=== PATIENT | female | born 1985 | race Two or more races ===

== ENCOUNTER → 2019-04-04 16:30 | Outpatient (BNVA) | payer MEDICAID, SELFPAY | PROVIDERS: Visit Provider Emergency Medicine | DX: J06.9 Acute upper respiratory infection, unspecified (principal); J02.9 Acute pharyngitis, unspecified; J98.8 Other specified respiratory disorders; J45.901 Unspecified asthma with (acute) exacerbation | CPT/HCPCS: 87081; 87880 ==

== ENCOUNTER 2023-10-17 09:55 | Observation (INO) | payer OTHER, MEDICAID, SELFPAY ==
[2023-10-17] VITALS (10 sets, daily range): BP systolic 112–143; BP diastolic 60–98; PULSE 66–87; RESP 10–21; TEMP 36.6–36.9; O2SAT 95–100; BMI 35.9; BMI 36.1
--- NOTE | 2023-10-17 10:03 | ECG_ITS ---
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 Measurements Intervals [place] Rate: 71 P: 40 SC: 154 QRS: 5 QRSD: 99 T: 15 QT: 382 QTc: 417 Interpretive Statements SINUS RHYTHM POSSIBLE ANTERIOR MYOCARDIAL INFARCTION , PROBABLY OLD [30 ms Q WAVE IN V3/V4, OR R < 0.2 mV IN V4] No previous ECG available for comparison Electronically Signed On 10-17-2023 14:57:25 CDT by Jl Henderson M.D. [id number] f
--- NOTE | 2023-10-17 10:32 | ED_ITS ---
HPI - Chest Pain 2 General: Chief Complaint: Chest Pain Stated Complaint: Chest Pain Time Seen by Provider: 10/17/23 09:55 History of Present Illness: 38-year-old female presents to the [place] ency room with complaint of chest discomfort began suddenly. She has a history of gastric sleeve and a previous cholecystectomy. She had brought her daughter away and otherwise been feeling fine and suddenly had sharp chest pain that radiated to her left arm it is resolved now. She has no known history of coronary disease or arrhythmias. No history of DVT or PE. She can reproduce the pain with deep inspiration and with palpation on the anterior chest wall. Denies any abdominal pain. Associated symptoms: Deny abdominal pain, dyspnea or fever(s) Review of Systems 2 Const: Denies: fever(s) or chills Card: Denies: chest pain Resp: Denies: dyspnea GI: Denies: abdominal pain : Denies: dysuria, urinary frequency or urinary urgency Musc: Denies: neck pain or back pain Skin/Breast: Denies: rash PFSH ED 2 PFSH: Surgical History (Updated 10/17/23 @ 14:34 by Kellen Martin MD) History of cholecystectomy History of gastric restrictive surgery gastric sleeve Family History Denies family history of Diabetes Dementia Hypertension Social History Smoking and tobacco/nicotine status: never used tobacco/nicotine Alcohol intake: never Substance/Drug Use: never Physical Exam 2 Const: COMMON NORMALS: no acute distress GENERAL APPEARANCE: cooperative and comfortable ORIENTATION/CONSCIOUSNESS: Yes awake, Yes oriented to person, Yes oriented to place and Yes oriented to time HENMT: COMMON NORMALS: normocephalic, atraumatic and hearing grossly normal bilaterally HEAD & SCALP: normocephalic and atraumatic Resp: COMMON NORMALS: normal respiratory effort, No retractions, No use of accessory muscles and clear to auscultation bilaterally AUSCULTATION: clear to auscultation bilaterally Cardio: COMMON NORMALS: regular rate, regular rhythm and No murmurs present (Cardio) RATE: regular rate RHYTHM: regular rhythm GI: COMMON NORMALS: Soft to palpation and No hepatosplenomegaly present A USCULTATION: Yes normoactive bowel sounds PALPATION: Yes Soft to palpation, No Tenderness to palpation present (GI), No Guarding due to palpation present (GI) and Yes No hepatosplenomegaly present Extremity: COMMON NORMALS: normal to inspection, capillary refill normal, no clubbing, cyanosis or edema, no calf tenderness and no pedal edema Neuro: SENSORIUM/ORIENTATION: Yes oriented to person, Yes oriented to place and Yes oriented to time Skin: COMMON NORMALS: no rashes or lesions noted GENERAL SKIN EXAM: no rashes or lesions noted Course 2 Vital Signs: Vital signs: Vital Signs Temperature 97.9 F 10/17/23 10:11 Pulse Rate 78 10/17/23 14:18 Respiratory Rate 16 10/17/23 14:18 Blood Pressure 143/98 10/17/23 13:04 Pulse Oximetry 100 10/17/23 14:18 Oxygen Delivery Me thod Room Air 10/17/23 14:18 MDM - Chest Pain Medical Decision Making Patient presents with sudden onset of chest comfort radiating to her left shoulder neck and arm. Mostly resolved by the time she got here and is reproducible with palpation of the chest and deep inspiration EKG did not show any acute changes or her delta troponin is positive. Discussed with Dr. Henderson on-call he recommends Lovenox. Patient was also given aspirin. Will admit to the hospitalist. Lab Data 10/17/23 10:50 10/17/23 10:50 Radiology Impressions Chest X-Ray 10/17/23 11:33 IMPRESSION: Unremarkable portable chest. Laboratory Results WBC 9.87 10^3/uL (3.29-11.43) 10/17/23 10:50 RBC 4.47 10^6/uL (3.85-5.65) 10/17/23 10:50 Hgb 13.80 g/dL (11.27-16.99) 10/17/23 10:50 Hct 42.6 % (36-47) 10/17/23 10:50 MCV 95.3 fl (85-98) 10/17/23 10:50 MCH 30.9 pg (27-33) 10/17/23 10:50 MCHC 32.4 g/dL (30-55) 10/17/23 10:50 RDW 13.1 % (12.1-15.1) 10/17/23 10:50 Plt Count 304 10^3/cmm (157-399) 10/17/23 10:50 MPV 10.2 fL (7.4-10.4) 10/17/23 10:50 Neut % (Auto) 77.4 % 10/17/23 10:50 Lymph % (Auto) 14.1 % 10/17/23 10:50 Russell % (Auto) 6.5 % 10/17/23 10:50 Eos % (Auto) 1.4 % 10/17/23 10:50 Baso % (Auto) 0.4 % 10/17/23 10:50 Neut # (Auto) 7.64 10^3/uL (1.8-7.7) 10/17/23 10:50 Lymph # (Auto) 1.4 10^3/uL (0.8-4.8) 10/17/23 10:50 Russell # (Auto) 0.6 10^3/uL (0.2-0.9) 10/17/23 10:50 Eos # (Auto) 0.1 10^3/uL (0.0-0.8) 10/17/23 10:50 Baso # (Auto) 0.0 10^3/uL (0.0-0.1) 10/17/23 10:50 Nucleated RBC % (auto) 0 % 10/17/23 10:50 Nucleated RBCs # 0.0 /100WBC 10/17/23 10:50 D-Dimer <= 0.27 ug/mLFEU (0-0.59) 10/17/23 10:50 Sodium 138 mmol/L (136-145) 10/17/23 10:50 Potassium 3.8 mmol/L (3.5-5.1) 10/17/23 10:50 Chloride 103 mmol/L (98-107) 10/17/23 10:50 Carbon Dioxide 21 mmol/L (22-29) L 10/17/23 10:50 Anion Gap 17.8 (5-19) 10/17/23 10:50 BUN 11 mg/dL (6-20) 10/17/23 10:50 Creatinine 0.4 mg/dL (0.5-0.9) L 10/17/23 10:50 GFR Calculation 179.6 mL/min (90-130) H 10/17/23 10:50 Glucose 95 mg/dL (65-115) 10/17/23 10:50 Calculated Osmolality 285 mOsm/kg (285-295) 10/17/23 10:50 Calcium 9.2 mg/dL (8.5-10.5) 10/17/23 10:50 Total Bilirubin 0.4 mg/dL (0.15-1.2) 10/17/23 10:50 AST 11 U/L (0-32) 10/17/23 10:50 ALT 11 U/L (0-33) 10/17/23 10:50 Alkaline Phosphatase 69 U/L (35-105) 10/17/23 10:50 Troponin T Baseline 16 ng/L (0-10) H 10/17/23 10:50 Troponin T 120 Minute 46.78 ng/L (0-10) H 10/17/23 13:02 Delta Troponin T 30.78 ABS# (0-10) H* 10/17/23 13:02 Total Protein 7.4 g/dL (6.6-8.7) 10/17/23 10:50 Albumin 4.4 g/dL (3.5-5.2) 10/17/23 10:50 Globulin 3.0 g/dL (1.3-4.6) 10/17/23 10:50 Amorphous Sediment Not Reportable 10/17/23 14:10 All radiology interpretation(s) finalized by discharge EKG Data EKG 1: Interpretation: Normal sinus rhythm with a heart rate of 71. No acute ST changes ID interval 154 QT 382 EKG 2: Interpretation: Sinus bradycardia rate of 59 ID interval [address] QTc [address] No acute ST elevation noted. Discharge Plan Discharge Patient Disposition: Admitted As Inpatient Clinical Impression: Non-ST elevation [place] (NSTEMI) Condition: Stable Prescriptions: No Action No Known Home Medications Coding Level of Care Code ED Electrical Drafter for Amaod Pierson
--- NOTE | 2023-10-17 10:49 | PC.PHAR ---
NO CURRENT HOME MEDS LAST RX WAS MACROBID 100MG TWICE DAILY FOR 7 DAYS 07/04/23-FINISHED THERAPY.
[2023-10-17 11:12] LABS: Basophils % 0.4 %; Eosinophils # 0.1 10^3/uL (0.0-0.8); Eosinophils % 1.4 %; Hematocrit 42.6 % (36-47); Lymphocytes # 1.4 10^3/uL (0.8-4.8); Lymphocytes % 14.1 %; Mean Corpuscular HGB Conc 32.4 g/dL (30-55); Mean Corpuscular Hemoglobin 30.9 pg (27-33); Mean Corpuscular Volume 95.3 fl (85-98); Mean Platelet Volume 10.2 fL (7.4-10.4); Monocytes # 0.6 10^3/uL (0.2-0.9); Monocytes % 6.5 %; Neutrophils # 7.64 10^3/uL (1.8-7.7); Neutrophils % 77.4 %; Nucleated Red Blood Cells % 0 %; Platelet Count 304 10^3/cmm (157-399); Red Blood Count 4.47 10^6/uL (3.85-5.65); Red Cell Distribution Width 13.1 % (12.1-15.1); White Blood Count 9.87 10^3/uL (3.29-11.43)
[2023-10-17 11:30] LABS: D Dimer <= 0.27 ug/mLFEU (0-0.59)
[2023-10-17 11:31] LABS: Alanine Aminotransferase 11 U/L (0-33); Albumin Level 4.4 g/dL (3.5-5.2); Alkaline Phosphatase 69 U/L (35-105); Anion Gap 17.8 (5-19); Aspartate Amino Transferase 11 U/L (0-32); Blood Urea Nitrogen 11 mg/dL (6-20); Calcium 9.2 mg/dL (8.5-10.5); Carbon Dioxide 21 mmol/L (22-29); Chloride 103 mmol/L (98-107); Glomerular Filtration Rate 179.6 mL/min (90-130); Glucose 95 mg/dL (65-115); Osmolality Calculated 285 mOsm/kg (285-295); Potassium 3.8 mmol/L (3.5-5.1); Sodium 138 mmol/L (136-145); Total Bilirubin 0.4 mg/dL (0.15-1.2); Total Protein 7.4 g/dL (6.6-8.7); Troponin(5th) Baseline 16 ng/L (0-10)
[2023-10-17 11:32] LABS: Creatinine Clr Calc Pharmacy 191.9813
--- NOTE | 2023-10-17 11:33 | XR_ITS ---
WS: [id number] PORTABLE CHEST HISTORY: chest pain COMPARISON: None available. Lungs are clear and well expanded. No pleural effusion or pneumothorax. Cardiac size: Normal. Mediastinum/Aorta: Normal mediastinum. No osseous abnormality seen. XR/XR chest 1V portable [id number] IMPRESSION: Unremarkable portable chest.
--- NOTE | 2023-10-17 11:57 | ECG_ITS ---
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 Measurements Intervals [place] Rate: 59 P: 50 [place]: 158 QRS: 31 QRSD: 94 T: 34 QT: 411 QTc: 410 Interpretive Statements SINUS BRADYCARDIA Compared to ECG 10/17/2023 10:03:20 Sinus rhythm no longer present Myocardial infarct finding no longer present Electronically Signed On 10-17-2023 14:58:48 CDT by Jl Henderson M.D. [email or web address]/[id number]
[2023-10-17 13:32] LABS: Troponin 5 2HR 46.78 ng/L (0-10)
[2023-10-17 13:36] LABS: Troponin 5 2HR Delta 30.78 ABS# (0-10)
--- NOTE | 2023-10-17 13:58 | PM.HP ---
Providers/Chief Complaint Admitting Physician: Kellen Martin MD Primary Care Provider: Previously saw Dr. Roman at [facility]. Now sees whomever is at the [facility]. Chief Complaint: Chest Pain History of Present Illness Padmaja Haywood is a 38 year old female who presented to the emergency room with chief complaint of chest pain. She had taken her daughter to practice and return home. She was sitting down when she had sudden onset of substernal chest pain that was sharp in nature going through to her back. It also went up into her left shoulder and down the arm. It was severe in nature. She had associated nausea and shortness of breath. She called EMS. In route they administered aspirin and nitroglycerin and by the time she arrived here her chest pain had resolved. Twelve-lead EKG did not show any acute ST segment changes. Initial troponin was 16. Chest pain was noted to be reproducible with palpation of her chest wall. Serial cardiac enzymes continued and 2-hour troponin delta was found to be elevated at 30.78. No personal or family history of heart or related medical problems. She does not smoke, use drugs and rarely has any alcohol. Chest pain recurred while she was in the emergency room this time originating in the left chest rather than under the sternum but again radiated to the left arm and through her back. Second episode of severe chest pain up to 10 out of 10 occurred after echocardiogram was initiated. Patient received some nitroglycerin and echocardiogram was completed. She feels like the combination of medicine and the pressure on her chest being removed led to the improvement. She currently rates her pain at a 5 out of 10. Blood pressure after first nitroglycerin 107 systolic. Heart rate in the low 70s. Oxygen saturations are normal on room air. In talking with Mrs. Haywood she has been using more Tums for the last few months for reflux symptoms that began to be an issue in May of this year. She has a history of asthma onset in childhood but has not utilized her rescue inhaler for several years now. No similar previous symptoms. No history of exertional dyspnea, lower extremity edema, orthopnea or PND. She does have problems with back pain that was waking her up at night but this is managed with Tylenol and better after a tiral with some therapy. She has a couple of migraines a month for which she takes ibuprofen. Last menstrual cycle was Carrol 28. Does not believe she has ever had lipid panel or A1c checked. She is being admitted to hospitalist for further evaluation and management. Review of Systems General: Reports: Other (ROS as per HPI or as otherwise noted here) Const: Denies: fever(s) or change in weight ENMT: Denies: nasal congestion Card: Reports: chest pain; Denies: palpitations, irregular heart rhythm, edema, swelling of feet/ankles, lightheadedness, syncope, dyspnea on exertion, orthopnea or leg pain with exertion Resp: Reports: dyspnea (with chest pain); Denies: productive cough, non-productive cough or wheezing GI: Reports: nausea (with chest pain), heartburn (frequent since ~05/2023, keeps tums with her) and diarrhea (stools looser than usual last 2 days, higher volume); Denies: abdominal pain, vomiting, constipation, belching, hematochezia or melena : Denies: difficulty voiding Musc: Reports: back pain (better with nighttime tylenol and back therapy exercise program); Denies: extremity pain or extremity swelling Skin/Breast: Denies: rash Neuro: Reports: headache(s) (couple migraines per month, managed with ibuprofen); Denies: dizziness Dawood/Lymph: Denies: easy bruising or easy bleeding Medications/Allergies Home Medications Medication Instructions Recorded Confirmed Last Taken Type acetaminophen 500 mg capsule 1,000 mg PO BEDTIME 10/17/23 10/17/23 10/16/23 History albuterol sulfate 90 mcg/actuation 1 inh inhalation QID PRN asthma 10/17/23 10/17/23 10/11/20 History aerosol inhaler calcium carbonate 1,000 mg PO BID PRN reflux 10/17/23 10/17/23 Unknown History ibuprofen 800 mg tablet 800 mg PO Q8H PRN Migraine Headache 10/17/23 10/17/23 Unknown History Allergies Allergy/AdvReac Type Severity Reaction Status Date / Time No Known Allergies Allergy Verified 04/04/19 16:27 PFSH Acute PFSH: Medical History (Updated 10/17/23 @ 15:35 by Kellen Martin MD) History of femur fracture left distal femur fracture, hairline in 2020, non-surgical management Migraine Asthma childhood asthma, still has prn albuterol but very rarely uses 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 Surgical History (Updated 10/17/23 @ 15:24 by Kellen Martin MD) History of tubal ligation (2022) History of cholecystectomy (2019) History of gastric restrictive surgery (2019) gastric sleeve Family History (Updated 10/17/23 @ 15:08 by Kellen Martin MD) Denies family history of Diabetes CAD (coronary artery disease) Clotting disorder Dementia Hyperlipidemia Chronic kidney disease (CKD) Hypertension Social History (Updated 10/17/23 @ 15:09 by Kellen Martin MD) Smoking and tobacco/nicotine status: never used tobacco/nicotine Alcohol intake: current Alcohol intake frequency: holidays/special occasions only Alcohol use comment: rare use Substance/Drug Use: never Female Reproductive History: Date of last menstrual period: 10/08/23 : 4 Para: 2 Spontaneous abortions: Yes (2) Vitals/I&O/Wt Last Vital Signs Temp 97.9 F 10/17/23 10:11 Pulse 73 10/17/23 13:04 Resp 18 10/17/23 13:04 BP 143/98 10/17/23 13:04 Pulse Ox 100 10/17/23 13:04 O2 Del Method Room Air 10/17/23 13:04 Weight last 48 hrs Weight 86.183 kg Physical Exam Narrative: Patient is awake and alert, able to provide history. Normocephalic. Extraocular movements are intact. Oropharynx with moist mucous membranes. Neck is supple. Lungs are clear to auscultation bilaterally. Cardiovascular exam reveals a regular rate and rhythm, no murmurs or rubs noted. Pendulous breasts noted. Chest wall is tender to palpation to left of the sternum with extension of pain into the left shoulder. ALso notable with deep inspiration with some splinting of left thorax noted. Abdomen is soft, nontender with positive bowel sounds. No pitting edema in the pretibial or ankle regions. 2+ pulses x 4. Speech is clear, face symmetric, moves all extremities. Data 10/17/23 10:50 10/17/23 10:50 Other Labs: Radiology Impressions Chest X-Ray 10/17/23 11:33 IMPRESSION: Unremarkable portable chest. Laboratory Results WBC 9.87 10^3/uL (3.29-11.43) 10/17/23 10:50 RBC 4.47 10^6/uL (3.85-5.65) 10/17/23 10:50 Hgb 13.80 g/dL (11.27-16.99) 10/17/23 10:50 Hct 42.6 % (36-47) 10/17/23 10:50 MCV 95.3 fl (85-98) 10/17/23 10:50 MCH 30.9 pg (27-33) 10/17/23 10:50 MCHC 32.4 g/dL (30-55) 10/17/23 10:50 RDW 13.1 % (12.1-15.1) 10/17/23 10:50 Plt Count 304 10^3/cmm (157-399) 10/17/23 10:50 MPV 10.2 fL (7.4-10.4) 10/17/23 10:50 Neut % (Auto) 77.4 % 10/17/23 10:50 Lymph % (Auto) 14.1 % 10/17/23 10:50 Jenkins % (Auto) 6.5 % 10/17/23 10:50 Eos % (Auto) 1.4 % 10/17/23 10:50 Baso % (Auto) 0.4 % 10/17/23 10:50 Neut # (Auto) 7.64 10^3/uL (1.8-7.7) 10/17/23 10:50 Lymph # (Auto) 1.4 10^3/uL (0.8-4.8) 10/17/23 10:50 Jenkins # (Auto) 0.6 10^3/uL (0.2-0.9) 10/17/23 10:50 Eos # (Auto) 0.1 10^3/uL (0.0-0.8) 10/17/23 10:50 Baso # (Auto) 0.0 10^3/uL (0.0-0.1) 10/17/23 10:50 Nucleated RBC % (auto) 0 % 10/17/23 10:50 Nucleated RBCs # 0.0 /100WBC 10/17/23 10:50 D-Dimer <= 0.27 ug/mLFEU (0-0.59) 10/17/23 10:50 Sodium 138 mmol/L (136-145) 10/17/23 10:50 Potassium 3.8 mmol/L (3.5-5.1) 10/17/23 10:50 Chloride 103 mmol/L (98-107) 10/17/23 10:50 Carbon Dioxide 21 mmol/L (22-29) L 10/17/23 10:50 Anion Gap 17.8 (5-19) 10/17/23 10:50 BUN 11 mg/dL (6-20) 10/17/23 10:50 Creatinine 0.4 mg/dL (0.5-0.9) L 10/17/23 10:50 GFR Calculation 179.6 mL/min (90-130) H 10/17/23 10:50 Glucose 95 mg/dL (65-115) 10/17/23 10:50 Calculated Osmolality 285 mOsm/kg (285-295) 10/17/23 10:50 Calcium 9.2 mg/dL (8.5-10.5) 10/17/23 10:50 Total Bilirubin 0.4 mg/dL (0.15-1.2) 10/17/23 10:50 AST 11 U/L (0-32) 10/17/23 10:50 ALT 11 U/L (0-33) 10/17/23 10:50 Alkaline Phosphatase 69 U/L (35-105) 10/17/23 10:50 Troponin T Baseline 16 ng/L (0-10) H 10/17/23 10:50 Troponin T 120 Minute 46.78 ng/L (0-10) H 10/17/23 13:02 Delta Troponin T 30.78 ABS# (0-10) H* 10/17/23 13:02 Total Protein 7.4 g/dL (6.6-8.7) 10/17/23 10:50 Albumin 4.4 g/dL (3.5-5.2) 10/17/23 10:50 Globulin 3.0 g/dL (1.3-4.6) 10/17/23 10:50 Other data: HEART Score 3 at presentation but 2 hr troponin delta positive at 31 A&P Assessment and plan (1) Non-ST elevation [place] (NSTEMI): As evidenced by +2-hour troponin delta at 30. 2nd EKG with sinus bradycardia at 59. No acute ST segment changes. Chest pain itself is reproducible on examination and was exacerbated during echocardiogram due to pressure from probe. Pain is occurring at rest. There are features which are concerning such as pain going through to the back up into the left shoulder and down the left arm and being associated with shortness of breath and nausea. No personal history of similar symptoms prior to today. No known history of CAD, hypertension, hyperlipidemia, diabetes or kidney disease. Has had several miscarriages last couple years. D-dimer is normal, sats normal on room air. Primary risk factor is obesity. No known family history though mother does not seek medical care. (2) Left-sided chest wall pain: Appears musculoskeletal with reproducibility on examination, but that would not explain cardiac enzymes elevation. Clinically she has costochondritis in addition to NSTEMI. (3) GERD (gastroesophageal reflux disease): Not know to have esophagitis, takes as needed tums, keeps with her, more noticeable issue since 05/2023 (4) History of back pain: Managed with acetaminophen at bedtime (5) Intermittent asthma: Mild intermittent without complication, chronic, not acute, last use of albuterol several years ago (6) History of migraine headaches: Couple per month, managed with with ibuprofen (7) Obesity (BMI 35.0-39.9 without comorbidity): Plan Observation admission Continue serial cardiac enzymes Cardiology consultation, will be seen by Dr. Henderson Echocardiogram has been performed, pending read Further determination of additional cardiac testing to be determined pending results of above Continue aspirin therapy Continue Lovenox for now Nitroglycerin if needed Holding on initiation of beta-blockade secondary to potential plan for stress testing and fact that patient had transient sinus bradycardia today Check hemoglobin A1c and lipid panel Initiate statin therapy Will give IV fluids Acetaminophen at bedtime for back pain scheduled and as needed for other pain, with max of 4 grams per day Holding ibuprofen currently due to acute issues and bleeding risk Monitor for migraines PPI plus as needed Tums Currently not ordering as needed albuterol as she has not needed in several years test ordered VTE prophylaxis: SCDs GI Prophylaxis: PPI Antibiotics: none Pending studies: lipid panel, A1c, repeat cardiac enzymes, echo interpretation Telemetry: ordered Lovelace: not currently indicated Line(s): peripheral IVs Disposition plan: Home with outpatient follow up to primary care at [facility], possibly with cardiology depending on clinical course Code Status: Full Code Supportive care otherwise Findings, concerns and plans were discussed with patient and she was given an opportunity to ask questions Attestations Medical Necessity Statement*: Anticipated stay less than 2 midnights currently in a patient presenting with chest pain that has both typical atypical features. She has positive 2-hour troponin delta and will require additional cardiac testing and risk factor evaluation/modification. Plans are as noted. Diagnoses Non-ST elevation WI (NSTEMI) I21.4 Left-sided chest wall pain R07.89 GERD (gastroesophageal reflux disease) K21.9 History of back pain Z87.39 Intermittent asthma J45.20 History of migraine headaches Z86.69 Obesity (BMI 35.0-39.9 without comorbidity) E66.9
--- NOTE | 2023-10-17 14:18 | USCV_ITS ---
Padmaja Haywood Age: 38 Gender: F : 1985 Exam Date: 10/17/2023 14:30 Ordering Phys: Kellen Martin MD Technologist: Exam Location: [facility] [place] Indication: abnormal triponine BP: 123 / 87 HR: 89 Rhythm: Sinus Technical Quality: Adequate MEASUREMENTS (Male / Female) Normal Values 2D ECHO LV Diastolic Diameter PLAX 3.7 cm 4.2 - 5.9 / 3.9 - 5.3 cm IVS Diastolic Thickness 1.1 cm 0.6 - 1.0 / 0.6 - 0.9 cm IVS Systolic Thickness 1.5 cm LVPW Diastolic Thickness 1.3 cm 0.6 - 1.0 / 0.6 - 0.9 cm LVPW Systolic Thickness 1.7 cm LVOT Diameter 2.0 cm LV Ejection Fraction 2D Teich 61.6 % LV Ejection Fraction MOD 4C 57.4 % LV Ejection Fraction MOD 2C 60.4 % LV Ejection Fraction 2C AL 60.5 % LA Diameter 2.9 cm Aorta at Sinotubular Diameter 2.6 cm IVC Diameter 2.1 cm DOPPLER AV Peak Velocity 72.0 cm/s LVOT Peak Velocity 73.0 cm/s AV Area Cont Eq vti 3.4 cm squared AV Area Cont Eq pk 3.2 cm squared MV Peak Velocity 69.0 cm/s MV Area PHT 4.2 cm squared Mitral E to A Ratio 1.2 TR Peak Velocity 117.0 cm/s TR Peak Gradient 5.5 mmHg TV Peak E Velocity 72.0 cm/s Right Atrial Pressure 3.0 mmHg Pulmonary Artery Systolic Pressu 8.5 mmHg PV Peak Velocity 98.0 cm/s FINDINGS Left Ventricle Left ventricle is normal in size. LV systolic function is normal with EF 55 to 60%. In some views, apical and anterolateral britton appear to have mild hypokinesis. Right Ventricle Normal in size and function Right Atrium Normal in size Left Atrium Normal in size Mitral Valve Structurally normal mitral valve. Mild mitral regurgitation Aortic Valve Structurally normal aortic valve. No significant stenosis or regurgitation. Tricuspid Valve Insufficient TR jet to evaluate RVSP. Pulmonic Valve Not well visualized Pericardium Normal Aorta Normal in size IVC Appears to be normal CONCLUSIONS LV systolic function is normal with EF 55 to 60%. In some views apical, anterior britton appeared to have mild hypokinesis. Mild mitral regurgitation. No comparison studies are available. Jl Henderson MD (Electronically Signed) Final Date: 17 October 2023 17:09 S
[2023-10-17] MEDS: aspirin 81 mg Chew Tablet 324 MG PO (14:21)
[2023-10-17] MEDS: enoxaparin 100 mg/mL Syringe 90 MG SUBCUT (14:22)
[2023-10-17 14:24] LABS: Charge for UA Resulting for Rev
[2023-10-17 14:31] LABS: Bilirubin Urine Negative (Negative); Blood Urine Negative (Negative); Glucose Urine UA Negative (Normal); Ketones Urine 1+ (Negative); Leukocyte Esterase Urine 3+ (Negative); Nitrate Urine Negative (Negative); Protein Urine Negative (Negative); Specific Gravity, Urine 1.009 (1.005-1.030); Urine Appearance Clear (CLEAR); Urine Color Yellow (Yellow); Urobilinogen Urine 0.2 mg/dL (Negative); pH Urine 5.5 (5-7)
[2023-10-17 14:34] LABS: HCG Qualitative Urine. Negative (Negative)
[2023-10-17 14:35] LABS: Bacteria Urine Trace /hpf; RBC Urine 0-2 /hpf (0-2); Squamous Epithelial Cell Urine 0-5 /hpf (0-5); WBC Urine 21-50 /hpf (0-5)
[2023-10-17 14:38] LABS: Add Urine Culture? Yes
[2023-10-17] MEDS: nitroglycerin 0.4 mg sublingual Tablet SUBLINGUAL ×2 (14:45→15:03)
[2023-10-17] MEDS: sodium chloride 0.9% 250 ML IV (15:03)
[2023-10-17 15:06] LABS: NT Pro B Type Natriuretic Pept < 36 pg/mL (0-125)
--- NOTE | 2023-10-17 15:57 | ECG_ITS ---
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 Measurements Intervals [place] Rate: 82 P: 49 [place]: 187 QRS: 16 QRSD: 105 T: 23 QT: 362 QTc: 425 Interpretive Statements SINUS RHYTHM Compared to ECG 10/17/2023 11:36:49 Sinus bradycardia no longer present Electronically Signed On 10-17-2023 14:57:27 CDT by Jl Henderson M.D. [email or web address] [email or web address] city [email or web address]/store/[id number]
--- NOTE | 2023-10-17 15:58 | PC.NURSE ---
received into room 104 from er at 1540.oriented to room environment.pt denies cp at present.vss.sr on monitor.instructed to notify staff for any chest pain,sob,dizziness,or for any concerns at all.pt verb understanding of instructions
--- NOTE | 2023-10-17 16:54 | P.CONIM_ITS ---
Providers/Reason For Consult 2 Consulting Physician/Specialty*: Jl Henderson MD/ Cardiology Reason for Consult*: NSTEMI Requesting Physician: Dr Fountain Attending Physician: Kellen Martin MD History of Present Illness History of Present Illness Padmaja Haywood is a 38 year old female with no significant prior cardiac history was presented to hospital with 15 minutes of severe substernal chest pain. It was going into the left arm. Again in the hospital had 1 episode of chest discomfort. Nitroglycerin improved the pain. Her initial troponin was 16 that went up to 46 at 2 hours. EKG not showing ischemic changes. She had an echocardiogram that is showing hypokinesis of anterolateral wall. Review of Systems 2 Const: Denies: fever(s) or chills Card: Reports: chest pain Resp: Denies: dyspnea GI: Denies: abdominal pain : Denies: dysuria, urinary frequency or urinary urgency Musc: Denies: neck pain or back pain Skin/Breast: Denies: rash Medications/Allergies Home Medications Medication Instructions Recorded Confirmed Last Taken Type acetaminophen 500 mg capsule 1,000 mg PO BEDTIME 10/17/23 10/17/23 10/16/23 History albuterol sulfate 90 mcg/actuation 1 inh inhalation QID PRN asthma 10/17/23 10/17/23 10/11/20 History aerosol inhaler calcium carbonate 1,000 mg PO BID PRN reflux 10/17/23 10/17/23 Unknown History ibuprofen 800 mg tablet 800 mg PO Q8H PRN Migraine Headache 10/17/23 10/17/23 Unknown History Allergies Allergy/AdvReac Type Severity Reaction Status Date / Time No Known Allergies Allergy Verified 04/04/19 16:27 Current Medications Generic Name Dose Route Start Last Admin Trade Name Freq PRN Reason Stop Dose Admin Nitroglycerin 0.4 mg 10/17/23 14:38 10/17/23 15:03 Nitroglycerin 0.4 Mg Sublingual Tablet SUBLINGUAL 0.4 mg Q5M PRN Administration CHEST PAIN PFSH Acute 2 PFSH: Medical History History of femur fracture left distal femur fracture, hairline in 2020, non-surgical management Migraine Asthma childhood asthma, still has prn albuterol but very rarely uses 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 Surgical History History of tubal ligation (2022) History of cholecystectomy (2019) History of gastric restrictive surgery (2019) gastric sleeve Family History Denies family history of Diabetes CAD (coronary artery disease) Clotting disorder Dementia Hyperlipidemia Chronic kidney disease (CKD) Hypertension Social History Smoking and tobacco/nicotine status: never used tobacco/nicotine Alcohol intake: current Alcohol intake frequency: holidays/special occasions only Alcohol use comment: rare use Substance/Drug Use: never Female Reproductive History: Date of last menstrual period: 10/08/23 G ravida: 4 Para: 2 Spontaneous abortions: Yes (2) Vitals/I&O/Wt Last Vital Signs Temp 97.9 F 10/17/23 10:11 Pulse 66 10/17/23 15:25 Resp 10 L 10/17/23 15:25 BP 127/94 10/17/23 15:25 Pulse Ox 96 10/17/23 15:25 O2 Del Method Room Air 10/17/23 15:03 Weight last 48 hrs Weight 190 lb Physical Exam 2 Narrative: GENERAL: Patient is alert, awake and oriented x3. [] NECK: No jugular vein distension. [] HEENT: No cyanosis. No icterus. No pallor. [] HEART: Regular S1 and S2. No murmur, rub or gallop. [] LUNGS: Clear to auscultate bilaterally. [] CENTRAL NERVOUS SYSTEM: Grossly nonfocal. [] EXTREMITIES: Lower extremities with no edema bilaterally. Data 10/18/23 04:02 10/18/23 04:02 A&P Assessment and plan (1) Non-ST elevation NE (NSTEMI): (2) GERD (gastroesophageal reflux disease): (3) History of back pain: Plan Patient has presented with typical symptoms of chest pain and troponin elevation. Echo is showing hypokinesis of anterolateral wall. We will proceed with coronary angiogram with possible PCI. Risks and benefits of the procedure have been discussed in detail. Patient understands that and wants to proceed. Continue aspirin and anticoagulation. Thank you for involving us with care of this patient. We will continue to follow. Please call with questions. Consult Attestations 2 Medical Necessity Statement: Care expected to cross 2 midnights. Coding Level of Care Code Acute Code for [facility] Fwd Diagnoses Non-ST elevation NE (NSTEMI) I21.4 GERD (gastroesophageal reflux disease) K21.9 History of back pain Z87.39
[2023-10-17 16:59] LABS: Troponin 5 6HR 41.46 ng/L (0-10)
[2023-10-17 17:11] LABS: Troponin 5 6HR Delta 25.46 ng/L (0-12)
[2023-10-17] MEDS: cefTRIAXone 1,000 mg SDV 1000 MG IVP (21:49)
[2023-10-17] MEDS: atorvastatin 40 mg Tablet PO (21:49)
[2023-10-17] MEDS: acetaminophen 325 mg Tablet 650 MG PO (23:54)
[2023-10-17] MEDS: D5-NS 0.45% + KCL 20 mEq 20 MEQ/1,000 ML BAG 75 MEQ IV (23:54)
[2023-10-18] VITALS (72 sets, daily range): BP systolic 94–138; BP diastolic 40–88; PULSE 63–101; RESP 10–29; TEMP 36.1–36.8; O2SAT 97–100
[2023-10-18] MEDS: enoxaparin 100 mg/mL Syringe 90 MG SUBCUT (02:29)
[2023-10-18 04:27] LABS: Basophils % 0.6 %; Eosinophils # 0.1 10^3/uL (0.0-0.8); Eosinophils % 1.8 %; Hematocrit 38.8 % (36-47); Lymphocytes # 2.1 10^3/uL (0.8-4.8); Lymphocytes % 28.9 %; Mean Corpuscular Hemoglobin 30.7 pg (27-33); Mean Platelet Volume 10.1 fL (7.4-10.4); Monocytes # 0.6 10^3/uL (0.2-0.9); Neutrophils # 4.22 10^3/uL (1.8-7.7); Neutrophils % 59.6 %; Nucleated Red Blood Cells % 0 %; Platelet Count 245 10^3/cmm (157-399); Red Blood Count 4.04 10^6/uL (3.85-5.65); Red Cell Distribution Width 12.9 % (12.1-15.1); White Blood Count 7.09 10^3/uL (3.29-11.43)
[2023-10-18 04:38] LABS: INR 1.02 (0.8-1.2)
[2023-10-18 04:39] LABS: Partial Thromboplastin Time 35.5 SECONDS (23.9-36.7)
[2023-10-18 04:43] LABS: Anion Gap 15.1 (5-19); Blood Urea Nitrogen 7 mg/dL (6-20); Calcium 8.5 mg/dL (8.5-10.5); Carbon Dioxide 24 mmol/L (22-29); Chloride 107 mmol/L (98-107); Creatinine Clr Calc Pharmacy 154.0257; Glomerular Filtration Rate 138.8 mL/min (90-130); Glucose 96 mg/dL (65-115); Magnesium 2.1 mg/dL (1.7-2.3); Osmolality Calculated 292 mOsm/kg (285-295); Phosphorus 3.2 mg/dL (2.5-4.5); Potassium 4.1 mmol/L (3.5-5.1); Sodium 142 mmol/L (136-145)
[2023-10-18 04:44] LABS: Estmated Average Glucose 88; Hemoglobin A1C 4.7 % (4.0-6.0)
[2023-10-18 04:45] LABS: Chol HDL Ratio 3.21 mg/dL (0.0-4.40); Cholesterol 186 mg/dL (0-200); HDL Cholesterol 58 mg/dL (60-100); LDL Cholesterol Calculated 115 mg/dL (50-129); LDL HDL Ratio 1.98 RATIO (0.00-3.22); Triglycerides 63 mg/dL (0-150)
[2023-10-18] MEDS: diphenhydrAMINE 50 mg Capsule PO (06:24)
--- NOTE | 2023-10-18 07:13 | W.PM.OPSUD ---
Surgery/Procedure H&P Update DATE OF PROCEDURE: October 18, 2023 DATE H&P PERFORMED: 10/17/23 H&P UPDATE INFORMATION: I have reviewed H&P completed within last 30 days, I have examined patient prior to procedure and No changes to prior documentation PREOP DIAGNOSIS: NSTEMI PRIMARY INDICATION FOR PROCEDURE: NSTEMI PLANNED PROCEDURE: Operation Date: 10/18/23 07:30 Proposed Procedures p Cardiac Catheterization(Left) - Jl Henderson M.D Possible percutaneous coronary intervention PATIENT REASSESSED PRIOR TO SEDATION, WITH NO CHANGE NOTED: Yes PHYSICAL EXAM: alert, oriented x 3, clear to auscultation bilaterally and regular rate & rhythm AIRWAY EVAL/ANESTHESIA PLAN: normal airway, ASA III, Local Anesthesia, Risks, benefits & alternatives of sedation and/or procedure discussed and Patient agrees to continue as planned ADDITIONAL INFORMATION: Moderate sedation
--- NOTE | 2023-10-18 07:30 | XACV_ITS ---
Exam Room: [facility] Ht: 155 cm Wt: 87 kg BSA: 1.97 m2 Gender: Female : 1985 Any Known Allergies: No known allergies Exam Priority: Routine Procedure(s): Procedure Description: Diagnostic procedure Procedure Description: Coronary Angiography Diagnostic Cath Status: Urgent Diagnostic Findings * INDICATION: NSTEMI. * Medium sized high diagonal/ ramus artery has significant tapering consistent with spontaneous coronary artery dissection (SCAD). This is culprit vessel for her presentation. * No disease noted in the Left Main, Left Anterior Descending, Right, or Circumflex coronary arteries. * Coronary angiography shows right dominance. Conclusions 1. 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 This is culprit vessel for patient's presentation. 2. No disease noted in the Left Main, Left Anterior Descending, Right, or Circumflex coronary arteries. Recommendations * We will proceed with medical therapy for SCAD. Continue aspirin. Will start Plavix 75 mg daily. Also will have low-dose beta-marry. * Outpatient cardiology follow-up in 2 weeks. Interventional RX Recommendation: medical therapy and/or counseling Diagnostic RX Recommendation: medical therapy and/or counseling Pressures Phase:Rest AO : 115 / 99 ( 108 ) @ 8:32:00 AM Clinical Evaluation EBL: 5mL-10mL Procedural Details Procedure Consent Obtained. Current Diagnosis : Chest Pain. Pre-Procedure Time Out. Identified patient by full name and date of as verbalized by the patient/guarantor. Does the consent match the physician's order: Yes. Accurate & Complete Informed Consent: Yes. Inpatient/Outpatient History & Physical on Chart: Yes. If H&P is completed, is and addenduem needed: No; If yes, is the addendum complete: N/A. Visualize and Verify Site with Patient/Guarantor: N/A. Relevant Radiology Images available: Yes. Pre-op teaching completed and patient verbalized understanding. The risks, benefits, and alternatives of sedation and/or procedure were discussed by physician. The patient agrees to continue. Procedure started. [facility] Clinical Fraility Score: 3: Managing Well. Metallurgy Laboratory Technician Indications: ACS > 24 hours. Chest Pain Symptom Assessment: Atypical Angina. Correct patient, site and procedure confirmed by cath team. Current diagnosis: Chest Pain. PERRLA. Strong, equal hand diamond mounter bilaterally. Lungs clear x 5 lobes. IV Site on Arrival: 20 gauge in the left hand. IV Fluids: 0.9% NaCl at KVO. 0 mL infused prior to laborer laboratory. Pre Procedural Pulses: right radial was 3+. Oxygen started at 2liters/min via nasal canula. right groin was prepped with chloroprep then draped in the usual sterile fashion. right radial was prepped with chloroprep then draped in the usual sterile fashion. Baseline sample Acquired. HR: 79 BPM. Physician notified. Physician arrived. Physician scrubbed in. Immediate Pre-Procedure Time Out. Correct Patient: Yes; Correct Procedure: Yes; Correct Site: Yes; Correct Patient Position: Yes; Correct Supplies: Yes; Dried Flammable Prep: Yes; Blood Products Available: N/A;. Lidocaine 1% infiltrated to the right groin. Ultrasound being used to obtain access. Arterial access obtained. A 5 montserratian TIG catheter in over wire. Catheter removed over the standard wire. A 5 montserratian JL3.5 catheter in over wire. Multiple views taken of left coronary artery. Catheter removed over the exchange wire. A 5 montserratian JR4 catheter in over wire. Wire out. Glidewire inserted. Multiple views taken of right coronary artery. Catheter removed over the exchange wire. A TR Band was successful obtaining hemostatsis at the Right Radial artery insertion site. Post Procedure: Pulses reassessed and unchanged. PERRLA. Strong, equal hand diamond mounter bilaterally. No VTE prophylaxis required. Medication's Wasted: Lidocaine 1% = 18 mL. Medication's Wasted: Nitro = 49.4 mcg. Medication's Wasted: Heparin = 5000 units. Total IV fluids: 216 mL. Vital chart was stopped. Complications: None. Estimated blood loss: 5mL-10mL. Responsiveness - Normal response to verbal stimuli; alert and oriented, PERRLA. Airway - Unaffected, no intervention required; spontaneous ventilation. Circulation: W/N/L, pulses unchanged. Nausea/Vomiting: No. Procedure completed. Patient transferred by wheelchair to 1st floor. Access Site Site: Right Radial artery Sheath Size: 6 Fr Hemostasis Method: TR Band Hemostasis Success: Successful Procedure Medications Start: 7:13 AM Stop: 7:13 AM Medication: Versed Amount: 1 mg Route: I.V. Start: 7:13 AM Stop: 7:13 AM Medication: Fentanyl Amount: 50 mcg Route: I.V. Start: 7:17 AM Stop: 7:17 AM Medication: Versed Amount: 1 mg Route: I.V. Start: 7:23 AM Stop: 7:23 AM Medication: Nitrogylcerin Amount: 200 mcg Route: I.A. Start: 7:34 AM Stop: 7:34 AM Medication: Fentanyl Amount: 50 mcg Route: I.V. Start: 7:35 AM Stop: 7:35 AM Medication: Nitrogylcerin Amount: 200 mcg Route: I.A. Start: 7:38 AM Stop: 7:38 AM Medication: Versed Amount: 1 mg Route: I.V. Start: 7:43 AM Stop: 7:43 AM Medication: Nitrogylcerin Amount: 400 mcg Route: I.A. Start: 7:44 AM Stop: 7:44 AM Medication: 0.9% Saline Amount: 200 ml Route: I.V. bolus Start: 7:45 AM Stop: 7:45 AM Medication: Versed Amount: 1 mg Route: I.V. I, the attending physician, have reviewed and verified all procedure medications. Yes, all medications given per verbal order History/Risk Factors Hypertension: No Dyslipidemia: No Peripheral Arterial Disease (PAD): No Myocardial Infarction (NH): No Obesity: No Renal Disease: No Tobacco Use: Never Prior Interventions PCI: No CABG: No Valve Surgery: No Report Signatures Finalized by Jl Henderson MD on 11/01/2023 12:22 PM
[2023-10-18] MEDS: sodium chloride 0.9% 1,000 ML 100 ML IV (08:00)
--- NOTE | 2023-10-18 08:20 | P.PN_ITS ---
Subjective 2 Subjective: Patient is chest pain-free right now. Had coronary angiogram performed that shows a spontaneous coronary artery dissection of her diagonal/ramus artery. This is culprit vessel for patient's presentation. Vitals/I&O/Wt Last Vital Signs Temp 98.3 F 10/18/23 04:00 Pulse 68 10/18/23 06:00 Resp 27 H 10/18/23 04:00 BP 114/73 10/18/23 04:00 Pulse Ox 100 10/18/23 04:00 O2 Del Method Room Air 10/18/23 04:00 10/17/23 10/18/23 10/18/23 22:59 06:59 14:59 Intake Total 360 / 360 Output Total 0 / 0 Balance 360 / 360 Weight last 48 hrs Weight 202 lb Weight 191 lb Weight 190 lb Physical Exam 2 Narrative: GENERAL: Patient is alert, awake and oriented x3. [] NECK: No jugular vein distension. [] HEENT: No cyanosis. No icterus. No pallor. [] HEART: Regular S1 and S2. No murmur, rub or gallop. [] LUNGS: Clear to auscultate bilaterally. [] CENTRAL NERVOUS SYSTEM: Grossly nonfocal. [] EXTREMITIES: Lower extremities with no edema bilaterally. 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 We will proceed with medical therapy. Continue aspirin. Starting Plavix 75 mg daily. Holding anticoagulation. We will start low-dose beta-marry. As outpatient will rule out other vascular bed aneurysm/fibromuscular dysplasia Thank you for involving us with care of this patient. We will continue to follow. please call with questions. Attestations 2 Medical Necessity Statement*: Care expected to cross 2 midnights. Coding Level of Care Code Acute Code for [facility] Fwd Diagnoses Non-ST elevation TN (NSTEMI) I21.4 GERD (gastroesophageal reflux disease) K21.9 History of back pain Z87.39 Spontaneous dissection of coronary artery I25.42
--- NOTE | 2023-10-18 08:27 | PC.NURSE ---
received from cardiac track laborer at 0800 via w/c.report received.pt is drowsy but easily awakened and is alert and oriented x 3.sr on monitor.denies pain at present.right wrist with tr band on and inflated.right hand is warm to touch and with brisk capillary refill.palpable radial pulse noted distal to tr band.no hematoma noted.pt instructed in activity restrictions s/p radial artery procedure,and instructed to notify staff for any bleeding,pain,sob,numbness...or for any concerns at all.pt verb understanding of instructions
[2023-10-18] MEDS: pantoprazole DR 40 mg Tablet PO (08:43)
[2023-10-18] MEDS: metoprolol succinate ER (24 HR) 25 mg Tablet PO (08:43)
[2023-10-18] MEDS: clopidogrel 75 mg Tablet PO (08:43)
[2023-10-18] MEDS: aspirin 81 mg EC Tablet PO (08:43)
[2023-10-18] MEDS: acetaminophen 325 mg Tablet 650 MG PO (10:38)
--- NOTE | 2023-10-18 13:13 | USCV_ITS ---
Padmaja Haywood Age: 38 Gender: F : 1985 Exam Date: 10/18/2023 14:03 Ordering Phys: Ronald Ruiz MD Technologist: [place] [facility] [place]: [place] Risk Factors: Previous Vascular Surgery: Right Brachial BP: / Left Brachial BP: / Right Left Velocity (cm/s) Spectral Plaque Velocity (cm/s) Spectral Plaque Syst/Diast Broadening Syst/Diast Broadening / Prox CCA 91.10 / 23.00 78.90/ 16.70 Mid CCA 101.30/ 28.10 55.60/ 11.50 Distal CCA 84.60 / 28.10 73.70/ 23.20 Prox ICA 82.40 / 32.30 63.40/ 20.60 Mid ICA 101.30/ 44.30 73.20/ 29.40 Distal ICA 120.90/ 54.20 84.10 ECA 92.00 1.30 ICA/CCA 1.40 Antegrade Vertebral Antegrade 47.50/ 15.30 cm/s 61.00/ cm/s Tri Subclavian Tri 114.2 151.7 0 0 FINDINGS Comparison: none available. Technically limited carotid ultrasound due to poor imaging technique. No carotid stenosis seen. Cannot determine amount of plaque do to suboptimal imaging. Waveforms are normal. No significant elevation of systolic or diastolic velocities. CONCLUSIONS Limit technical exam. Bilateral ICA stenosis less than 50%. No stenosis seen but extent of plaque or thrombus cannot be determined. Dr. Eva Barrios DO (Electronically Signed) Final Date: 18 October 2023 15:14 S
--- NOTE | 2023-10-18 13:18 | USCV_ITS ---
Padmaja Haywood Age: 38 Gender: F : 1985 Exam Date: 10/18/2023 14:19 Ordering Phys: Ronald Ruiz MD Technologist: Exam Location: [facility] [place] Indication: fibromuscular dysplasia Aortic Velocity @ SMA (cm/s) RIGHT KIDNEY LEFT KIDNEY Velocity (cm/s) Velocity (cm/s) Sys/Farris Sys/Farris Resistive Index Resistive Index 56.0 / 28.0 0.50 Proximal Renal Artery 59.0 / 25.0 0.49 137.0 / 67.0 0.53 Mid Renal Artery 56.0 / 26.0 0.54 154.0 / 68.0 0.57 Distal Renal Artery 67.0 / 24.0 0.64 41.0 / 17.0 0.65 Hilar 52.0 / 26.0 0.54 25.0 / 7.0 0.73 Upper Pole 35.0 / 13.0 0.63 41.0 / 17.0 0.59 Mid Pole 26.0 / 14.0 0.47 45.0 / 19.0 0.57 Lower Pole 24.0 / 12.0 0.50 1.90 Renal Aortic Ratio 0.72 11.0 Kidney Length (cm) 9.8 FINDINGS No comparison. Limited renal artery evaluation. The aorta and main renal arteries have not been evaluated. Only images of the arteries within the kidney have been submitted. This not a true representation of a renal artery doppler evaluation. No renal atrophy. CONCLUSIONS Extremely limited evaluation of the renal arteries. Only the distal artery branches within the kidney were identified and interogated. Cannot exclude renal artery stenosis on this exam. Dr. Eva Barrios DO (Electronically Signed) Final Date: 18 October 2023 15:24 S
[2023-10-18 13:22] LABS: Erythrocyte Sedimentation Rate 9 mm/hr (0-15)
--- NOTE | 2023-10-18 15:44 | PC.NURSE ---
right wrist tr band slowly deflated and eventually removed at 1200.no hematoma formation noted.right hand remains warm to touch and with brisk capillary refill.palpable radial pulse noted.site dressed with 2x2 gauze and secured with biocclusive drsg.pt instructed in activity restrictions s/p tr band removal ...and instructed to notify staff for any bleeding,pain,numbness..or for any concerns at all.pt verb understanding of instructions
--- NOTE | 2023-10-18 15:50 | PM.DCS ---
Discharge Providers Date of Admission: 10/17/23 15:05 Date of Discharge: October 18, 2023 Attending Provider at Admission: Kellen Martin MD Attending Provider at Discharge: Ronald Ruiz MD Diagnoses at Discharge Discharge Diagnosis (1) Non-ST elevation ME (NSTEMI): Status: Acute (2) GERD (gastroesophageal reflux disease): Status: Acute (3) History of back pain: Status: Chronic (4) Spontaneous dissection of coronary artery: Status: Acute Reason for Visit Reason for Visit: Chest Pain Hospital Course Hospital Course Padmaja Haywood is a 38 year old female who presented to the emergency room with chief complaint of chest pain. She had taken her daughter to practice and return home. She was sitting down when she had sudden onset of substernal chest pain that was sharp in nature going through to her back. It also went up into her left shoulder and down the arm. It was severe in nature. She had associated nausea and shortness of breath. She called EMS. In route they administered aspirin and nitroglycerin and by the time she arrived here her chest pain had resolved. Twelve-lead EKG did not show any acute ST segment changes. Initial troponin was 16. Chest pain was noted to be reproducible with palpation of her chest wall. Serial cardiac enzymes continued and 2-hour troponin delta was found to be elevated at 30.78. No personal or family history of heart or related medical problems. She does not smoke, use drugs and rarely has any alcohol. Chest pain recurred while she was in the emergency room this time originating in the left chest rather than under the sternum but again radiated to the left arm and through her back. Second episode of severe chest pain up to 10 out of 10 occurred after echocardiogram was initiated. Patient received some nitroglycerin and echocardiogram was completed. She feels like the combination of medicine and the pressure on her chest being removed led to the improvement. She currently rates her pain at a 5 out of 10. Blood pressure after first nitroglycerin 107 systolic. Heart rate in the low 70s. Oxygen saturations are normal on room air. In talking with Mrs. Haywood she has been using more Tums for the last few months for reflux symptoms that began to be an issue in May of this year. She has a history of asthma onset in childhood but has not utilized her rescue inhaler for several years now. No similar previous symptoms. No history of exertional dyspnea, lower extremity edema, orthopnea or PND. She does have problems with back pain that was waking her up at night but this is managed with Tylenol and better after a tiral with some therapy. She has a couple of migraines a month for which she takes ibuprofen. Last menstrual cycle was October 07. Does not believe she has ever had lipid panel or A1c checked. She is being admitted to hospitalist for further evaluation and management. 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 She is medically managed on aspirin, statin, Plavix, beta-marry, with a close follow-up with cardiology as outpatient. Patient will require a workup for secondary causes of coronary artery dissection such as fibromuscular dysplasia, or domenica danlos syndrome, Marfan syndrome. She was told to not lift over 20 pounds, she does not want to get , she has had a bilateral tubal ligation, avoid estrogen containing medications. She has a increased risk for vascular aneurysms, and dissections, if she develops headache, strokelike symptoms to immediately call 911. If she develops any further chest pain to merely call 911. She will need close titration of her blood pressure. She voiced understanding, all close nausea, agreed to proceed Physical Exam Const: COMMON NORMALS: no acute distress and patient oriented x3 Resp: COMMON NORMALS: normal respiratory effort, No retractions, No use of accessory muscles and clear to auscultation bilaterally AUSCULTATION: clear to auscultation bilaterally Cardio: COMMON NORMALS: regular rate, regular rhythm, S1 normal heart sound present and S2 normal heart sound present RATE: regular rate RHYTHM: regular rhythm HEART SOUNDS: S1 normal heart sound present and S2 normal heart sound present GI: COMMON NORMALS: Normal to inspection, nondistended, normoactive bowel sounds present and non-tender Extremity: COMMON NORMALS: no pedal edema Neuro: COMMON NORMALS: patient oriented x3 Psych: COMMON NORMALS: mental status grossly normal Discharge Data Studies Completed and Pending Completed Studies During Hospitalization Category Date Time Status XR chest 1V portable [id number] Stat Exams 10/17/23 11:33 Completed CV carotid duplex BI* [id number] Stat Ultrasound 10/18/23 13:13 Completed CV. echo complete* [id number] Stat Ultrasound 10/17/23 14:18 Completed US renal doppler [CV renal doppler 28510] Stat Ultrasound 10/18/23 13:18 Completed Pending at discharge Category Date Time Status [employer] MANAGER request for service Routine Exams 10/18/23 07:30 Taken DAVID Profile Rheumatology Stat Lab 10/18/23 15:25 Received Urine Culture Stat Lab 10/17/23 14:10 Results Radiology Impressions Chest X-Ray 10/17/23 11:33 IMPRESSION: Unremarkable portable chest. Laboratory Results WBC 7.09 10^3/uL (3.29-11.43) 10/18/23 04:02 RBC 4.04 10^6/uL (3.85-5.65) 10/18/23 04:02 Hgb 12.40 g/dL (11.27-16.99) 10/18/23 04:02 Hct 38.8 % (36-47) 10/18/23 04:02 MCV 96.0 fl (85-98) 10/18/23 04:02 MCH 30.7 pg (27-33) 10/18/23 04:02 MCHC 32.0 g/dL (30-55) 10/18/23 04:02 RDW 12.9 % (12.1-15.1) 10/18/23 04:02 Plt Count 245 10^3/cmm (157-399) 10/18/23 04:02 MPV 10.1 fL (7.4-10.4) 10/18/23 04:02 Neut % (Auto) 59.6 % 10/18/23 04:02 Lymph % (Auto) 28.9 % 10/18/23 04:02 [place] % (Auto) 9.0 % 10/18/23 04:02 Eos % (Auto) 1.8 % 10/18/23 04:02 Baso % (Auto) 0.6 % 10/18/23 04:02 Neut # (Auto) 4.22 10^3/uL (1.8-7.7) 10/18/23 04:02 Lymph # (Auto) 2.1 10^3/uL (0.8-4.8) 10/18/23 04:02 [place] # (Auto) 0.6 10^3/uL (0.2-0.9) 10/18/23 04:02 Eos # (Auto) 0.1 10^3/uL (0.0-0.8) 10/18/23 04:02 Baso # (Auto) 0.0 10^3/uL (0.0-0.1) 10/18/23 04:02 Nucleated RBC % (auto) 0 % 10/18/23 04:02 Nucleated RBCs # 0.0 /100WBC 10/18/23 04:02 ESR 9 mm/hr (0-15) 10/18/23 04:02 PT 13.80 SECONDS (12.1-14.9) 10/18/23 04:02 INR 1.02 (0.8-1.2) 10/18/23 04:02 APTT 35.5 SECONDS (23.9-36.7) 10/18/23 04:02 D-Dimer <= 0.27 ug/mLFEU (0-0.59) 10/17/23 10:50 Sodium 142 mmol/L (136-145) 10/18/23 04:02 Potassium 4.1 mmol/L (3.5-5.1) 10/18/23 04:02 Chloride 107 mmol/L (98-107) 10/18/23 04:02 Carbon Dioxide 24 mmol/L (22-29) 10/18/23 04:02 Anion Gap 15.1 (5-19) 10/18/23 04:02 BUN 7 mg/dL (6-20) 10/18/23 04:02 Creatinine 0.5 mg/dL (0.5-0.9) 10/18/23 04:02 GFR Calculation 138.8 mL/min (90-130) H 10/18/23 04:02 Glucose 96 mg/dL (65-115) 10/18/23 04:02 Estimat Average Glucose 88 10/18/23 04:02 Hemoglobin A1c 4.7 % (4.0-6.0) 10/18/23 04:02 Calculated Osmolality 292 mOsm/kg (285-295) 10/18/23 04:02 Calcium 8.5 mg/dL (8.5-10.5) 10/18/23 04:02 Phosphorus 3.2 mg/dL (2.5-4.5) 10/18/23 04:02 Magnesium 2.1 mg/dL (1.7-2.3) 10/18/23 04:02 Total Bilirubin 0.4 mg/dL (0.15-1.2) 10/17/23 10:50 AST 11 U/L (0-32) 10/17/23 10:50 ALT 11 U/L (0-33) 10/17/23 10:50 Alkaline Phosphatase 69 U/L (35-105) 10/17/23 10:50 Troponin T Baseline 16 ng/L (0-10) H 10/17/23 10:50 Troponin T 120 Minute 46.78 ng/L (0-10) H 10/17/23 13:02 Delta Troponin T 30.78 ABS# (0-10) H* 10/17/23 13:02 Troponin T Hi Sens 6Hr 41.46 ng/L (0-10) H 10/17/23 16:20 Troponin T Hi Sens 6Hr Delta 25.46 ng/L (0-12) H* 10/17/23 16:20 NT-Pro-B Natriuret Pep < 36 pg/mL (0-125) 10/17/23 10:50 Total Protein 7.4 g/dL (6.6-8.7) 10/17/23 10:50 Albumin 4.4 g/dL (3.5-5.2) 10/17/23 10:50 Globulin 3.0 g/dL (1.3-4.6) 10/17/23 10:50 Triglycerides 63 mg/dL (0-150) 10/18/23 04:02 Cholesterol 186 mg/dL (0-200) 10/18/23 04:02 LDL Cholesterol, Calc 115 mg/dL (50-129) 10/18/23 04:02 HDL Cholesterol 58 mg/dL (60-100) L 10/18/23 04:02 LDL/HDL Ratio 1.98 RATIO (0.00-3.22) 10/18/23 04:02 Cholesterol/HDL Ratio 3.21 mg/dL (0.0-4.40) 10/18/23 04:02 HCG, Qual Negative (Negative) 10/17/23 14:10 Urine Color Yellow (Yellow) 10/17/23 14:10 Urine Appearance Clear (CLEAR) 10/17/23 14:10 Urine pH 5.5 (5-7) 10/17/23 14:10 Ur Specific [place] 1.009 (1.005-1.030) 10/17/23 14:10 Urine Protein Negative (Negative) 10/17/23 14:10 Urine Glucose (UA) Negative (Normal) 10/17/23 14:10 Urine Ketones 1+ (Negative) H 10/17/23 14:10 Urine Blood Negative (Negative) 10/17/23 14:10 Urine Nitrate Negative (Negative) 10/17/23 14:10 Urine Bilirubin Negative (Negative) 10/17/23 14:10 Urine Urobilinogen 0.2 mg/dL (Negative) 10/17/23 14:10 Ur Leukocyte Esterase 3+ (Negative) A 10/17/23 14:10 Urine RBC 0-2 /hpf (0-2) 10/17/23 14:10 Urine WBC 21-50 /hpf (0-5) H 10/17/23 14:10 Ur Squamous Epith Cells 0-5 /hpf (0-5) 10/17/23 14:10 Amorphous Sediment Not Reportable 10/17/23 14:10 Urine Bacteria Trace /hpf (NONE) 10/17/23 14:10 Hyaline Casts 0.40 /lpf 10/17/23 14:10 Vitals Last Vital Signs Temp 96.9 F L 10/18/23 12:00 Pulse 93 10/18/23 15:45 Resp 24 H 10/18/23 15:45 BP 131/74 10/18/23 13:30 Pulse Ox 99 10/18/23 13:20 O2 Del Method Room Air 10/18/23 12:00 Discharge Plan Discharge Patient Disposition: Home Condition: Stable Prescriptions: New aspirin 81 mg Tablet,Delayed Release (Dr/Ec) 81 mg PO DAILY 30 Days Qty: 30 0RF atorvastatin 40 mg Tablet 40 mg PO BEDTIME 30 Days Qty: 30 0RF nitroglycerin 0.4 mg Tablet, Sublingual 0.4 mg sublingual Q5M PRN (Reason: Chest Pain) 30 Days Qty: 30 0RF clopidogrel 75 mg Tablet 75 mg PO DAILY 30 Days Qty: 30 0RF metoprolol succinate 25 mg Tablet Extended Release 24 Hr 25 mg PO DAILY 30 Days Qty: 30 0RF Continued Tums 500 500 mg calcium (1,250 mg) Tablet,Chewable 1,000 mg PO BID PRN (Reason: reflux) albuterol sulfate 90 mcg/actuation Hfa Aerosol Inhaler 1 inh INHALATION QID PRN (Reason: asthma) Discontinued ibuprofen 800 mg Tablet 800 mg PO Q8H PRN (Reason: Migraine Headache) acetaminophen 500 mg Capsule 1,000 mg PO BEDTIME Discharge Orders: Discharge Order (Routine); Ordered 10/18/23 Ordered By: Ronald Ruiz Referrals: Jesu Mcgill MD [Physician] - 1 month (RECENT HOSPITALIZATION FOR CORONARY DISSECTION, NEEDS WORK UP FOR CEREBRAL ANEURYSM) Ninoska Tarango FNP [Nurse Practitioner] - 10/31/23 3:00 pm Charis Roman MD [Referring] - Discharge Diet: Cardiac Discharge Activity: Resume usual activity Patient Instructions: Opioid Safety Activity Restrictions/Additional Instructions: -IF YOU HAVE ANY CHEST PAIN PLEASE GO TO EMERGECY ROOM -IF YOU HAVE ANY STROKE LIKE SYMPTOMS OR SEVERE HEADACHE GO TO EMERGENCY ROOM -AVOID LIFTING GREATER THAN 20 POUNDS -YOU NEED SCREENING FOR FIBROMUSCULAR DYSPLASIA -AVOID ESTROGEN CONTAINING MEDICATIONS Discharge Attestations Time Spent in Discharge Care*: greater than 30 min Quality Metrics Clinical Quality Measures [ No reported AMI, CVA or VTE this stay] Coding Level of Care Code 01093 Total time (in minutes) for Discharge: 45 Diagnoses Non-ST elevation ME (NSTEMI) I21.4 GERD (gastroesophageal reflux disease) K21.9 History of back pain Z87.39 Spontaneous dissection of coronary artery I25.42
--- NOTE | 2023-10-18 17:19 | PC.NURSE ---
discharge instructions given and explained.pt verb understanding of instructions.discharged via w/c to exit at this time.friend to drive pt home.
[2023-10-19 14:15] LABS: CENTROMERE B ANTIBODY <1.0 NEG AI (<1.0 NEG); JO-1 ANTIBODY <1.0 NEG AI (<1.0 NEG); RNP ANTIBODY <1.0 NEG AI (<1.0 NEG); SCL-70 ANTIBODY <1.0 NEG AI (<1.0 NEG); SJOGREN'S ANTIBODY (SS-A) <1.0 NEG AI (<1.0 NEG); SM ANTIBODY <1.0 NEG AI (<1.0 NEG); SS-B <1.0 NEG AI (<1.0 NEG)
[2023-10-19 15:44] LABS: COMPLEMENT COMPONENT C3C 121 mg/dL (83-193); COMPLEMENT COMPONENT C4C 28 mg/dL (15-57)
[2023-10-20 06:54] LABS: ANA SCREEN, IFA NEGATIVE (NEGATIVE)
[2023-10-20 09:34] LABS: THYROID PEROXIDASE ANTIBODIES <1 IU/mL (<9)
[2023-10-20 14:19] LABS: COMPLEMENT, TOTAL (CH50) 54 U/mL (31-60)
[2023-10-28 01:00] LABS: DNA AB (DS) CRITHIDIA,IFA NEGATIVE (NEGATIVE)
== END 2023-10-18 17:20 | disposition home or self-care (01) ==
LOC: ER 14:40 → CSU 18:37
PROVIDERS: Internal Medicine; Admitting Provider Hospitalist; Emergency Provider Family Medicine; Visit Provider Family Medicine
DX: I21.4 Non-ST elevation (NSTEMI) myocardial infarction (principal); K21.9 Gastro-esophageal reflux disease without esophagitis; Z87.39 Personal history of other diseases of the musculoskeletal system and connective tissue; I25.42 Coronary artery dissection; J45.909 Unspecified asthma, uncomplicated
CPT/HCPCS: 36415; 71045; 80048; 80053; 80061; 81003; 81015; 81025; 83036; 83735; 83880; 84100; 84484; 85025; 85378; 85610; 85651; 85730; 86160; 86162; 86235; 86255; 86376; 87086; 93005; 93306; 93454; 93880; 93975; 96372; 96374; 96375; 99152; 99153; 99285; C1769; C1887; C1894; G0378; J0696; J1644; J1650; J2250; J3010; J3490; J7030; J7050; Q0163; Q9967

== ENCOUNTER 2023-10-24 14:28 | Inpatient (IN) | payer OTHER, MEDICAID, SELFPAY ==
[2023-10-24] VITALS (10 sets, daily range): BP systolic 115–155; BP diastolic 53–85; PULSE 62–85; RESP 18–20; TEMP 36.7–36.8; O2SAT 97–100
--- NOTE | 2023-10-24 14:34 | ECG_ITS ---
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 Measurements Intervals Bock Rate: 77 P: 48 CO: 158 QRS: 23 QRSD: 95 T: 46 QT: 356 QTc: 403 Interpretive Statements SINUS RHYTHM WITH SINUS ARRHYTHMIA POSSIBLE ANTERIOR MYOCARDIAL INFARCTION , PROBABLY OLD [30 ms Q WAVE IN V3/V4, OR R < 0.2 mV IN V4] Compared to ECG 10/17/2023 14:40:33 Myocardial infarct finding now present Electronically Signed On 10-24-2023 16:26:21 CDT by Jl Henderson M.D. [email or web address]
--- NOTE | 2023-10-24 14:34 | XR_ITS ---
WS: [id number] Examination: XR chest 1V portable [id number] Reason for Exam: dyspnea/cough Date: October 24, 2023 Comparison: October 17, 2023 Findings: The heart is nonenlarged. The mediastinum is not widened There is no failure or effusion. There is no consolidation XR/XR chest 1V portable [id number] Impression: No acute lung process is appreciated.
--- NOTE | 2023-10-24 14:35 | ED_ITS ---
HPI - Chest Pain 2 General: Chief Complaint: Chest Pain Stated Complaint: Chest Pain Time Seen by Provider: 10/24/23 14:31 History of Present Illness: 38-year-old female presents emergency ro om complaining of chest pain radiating to her left arm. When seen the patient recently on October 16 at that time she was having surprisingly specific chest pain discomfort for her age with relatively no risk factor she did have a positive delta troponin and eventually went to the [facility] [employer] and was found to have a coronary artery dissection. It was spontaneous. Associated symptoms: Deny abdominal pain, dyspnea or fever(s) Related Data Home Medications Medication Instructions Recorded Confirmed albuterol sulfate 90 mcg/actuation 1 inh inhalation QID PRN asthma 10/17/23 10/17/23 aerosol inhaler calcium carbonate 1,000 mg PO BID PRN reflux 10/17/23 10/17/23 Previous Rx's Medication Instructions Recorded aspirin 81 mg tablet,delayed 81 mg PO DAILY 30 days #30 tabs 10/18/23 release atorvastatin 40 mg tablet 40 mg PO BEDTIME 30 days #30 tabs 10/18/23 clopidogrel 75 mg tablet 75 mg PO DAILY 30 days #30 tabs 10/18/23 metoprolol succinate 25 mg 25 mg PO DAILY 30 days #30 tabs 10/18/23 tablet,extended release 24 hr nitroglycerin 0.4 mg sublingual 0.4 mg sublingual Q5M PRN Chest 10/18/23 tablet Pain 30 days #30 tabs Allergies Allergy/AdvReac Type Severity Reaction Status Date / Time No Known Allergies Allergy Verified 04/04/19 16:27 Review of Systems 2 Const: Denies: fever(s) or chills Card: Reports: chest pain Resp: Denies: dyspnea GI: Denies: abdominal pain : Denies: dysuria, urinary frequency or urinary urgency Musc: Denies: neck pain or back pain Skin/Breast: Denies: rash PFSH ED 2 PFSH: Medical History History of femur fracture left distal femur fracture, hairline in 2020, non-surgical management Migraine Asthma childhood asthma, still has prn albuterol but very rarely uses 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 Surgical History History of tubal ligation (2022) History of cholecystectomy (2019) History of gastric restrictive surgery (2019) gastric sleeve Family History Denies family history of Diabetes CAD (coronary artery disease) Clotting disorder Dementia Hyperlipidemia Chronic kidney disease (CKD) Hypertension Social History Smoking and tobacco/nicotine status: never used tobacco/nicotine Alcohol intake: current Alcohol intake frequency: holidays/special occasions only Substance/Drug Use: never Female Reproductive History: Para: 2 Spontaneous abortions: Yes (2) Physical Exam 2 Const: GENERAL APPEARANCE: cooperative ORIENTATION/CONSCIOUSNESS: Yes awake, Yes oriented to person, Yes oriented to place and Yes oriented to time HENMT: COMMON NORMALS: normocephalic, atraumatic and hearing grossly normal bilaterally HEAD & SCALP: normocephalic and atraumatic Resp: COMMON NORMALS: normal respiratory effort, No retractions, No use of accessory muscles and clear to auscultation bilaterally AUSCULTATION: clear to auscultation bilaterally Cardio: COMMON NORMALS: regular rate, regular rhythm and No murmurs present (Cardio) RATE: regular rate RHYTHM: regular rhythm GI: COMMON NORMALS: Soft to palpation and No hepatosplenomegaly present A USCULTATION: Yes normoactive bowel sounds PALPATION: Yes Soft to palpation, No Tenderness to palpation present (GI), No Guarding due to palpation present (GI) and Yes No hepatosplenomegaly present Extremity: COMMON NORMALS: normal to inspection, capillary refill normal, no clubbing, cyanosis or edema, no calf tenderness and no pedal edema Neuro: SENSORIUM/ORIENTATION: Yes oriented to person, Yes oriented to place and Yes oriented to time Skin: COMMON NORMALS: no rashes or lesions noted GENERAL SKIN EXAM: no rashes or lesions noted Course 2 Vital Signs: Vital signs: Vital Signs Temperature 98.3 F 10/24/23 14:30 Pulse Rate 63 10/24/23 15:49 Respiratory Rate 19 H 10/24/23 15:49 Blood Pressure 155/79 10/24/23 15:49 Pulse Oximetry 100 10/24/23 15:49 Oxygen Delivery Me thod Room Air 10/24/23 14:30 MDM - Chest Pain Medical Decision Making Patient presents with recurrent chest pain similar to what she had previously was a known history of coronary artery dissection. She had some numbness on her left side arm and leg last night. Bedside NIH score is 0. She has no focal neurologic deficits at time presentation. Discussed with cardiology they recommend nitro and observation serial troponins they will consult. Discussed Dr. Ruiz is on for hospitalist service he seen the patient previously. He asked that we do a CTA head and neck to rule out dissection of the carotid. That has been done this time. Orders written for admission. Medical Records I reviewed the patient's medical records. Lab Data I reviewed the patient's lab results. 10/24/23 14:45 10/24/23 14:45 Radiology Impressions Chest X-Ray 10/24/23 14:34 Impression: No acute lung process is appreciated. Head/Neck CTA 10/24/23 15:18 IMPRESSION: No large vessel stenosis or occlusion. IMPRESSION: No stenosis or occlusion. REFERENCES: NASCET CRITERIA. The degree of stenosis in the cervical segment of the internal carotid artery is based on NASCET criteria. Normal is no stenosis. Mild is less than 50% stenosis. Moderate is 50-69% stenosis. Severe is 70% to 99% stenosis. Total occlusion is no detectable patent lumen. Head CT 10/24/23 15:21 IMPRESSION: No acute intracranial abnormality. ASSESSMENT: ASPECTS (Kimi Stroke Program Early CT Score) is 10. Laboratory Results WBC 7.54 10^3/uL (3.29-11.43) 10/24/23 14:45 RBC 4.10 10^6/uL (3.85-5.65) 10/24/23 14:45 Hgb 12.50 g/dL (11.27-16.99) 10/24/23 14:45 Hct 39.6 % (36-47) 10/24/23 14:45 MCV 96.6 fl (85-98) 10/24/23 14:45 MCH 30.5 pg (27-33) 10/24/23 14:45 MCHC 31.6 g/dL (30-55) 10/24/23 14:45 RDW 13.0 % (12.1-15.1) 10/24/23 14:45 Plt Count 290 10^3/cmm (157-399) 10/24/23 14:45 MPV 10.0 fL (7.4-10.4) 10/24/23 14:45 Neut % (Auto) 57.3 % 10/24/23 14:45 Lymph % (Auto) 31.3 % 10/24/23 14:45 [place] % (Auto) 8.6 % 10/24/23 14:45 Eos % (Auto) 1.9 % 10/24/23 14:45 Baso % (Auto) 0.5 % 10/24/23 14:45 Neut # (Auto) 4.32 10^3/uL (1.8-7.7) 10/24/23 14:45 Lymph # (Auto) 2.4 10^3/uL (0.8-4.8) 10/24/23 14:45 [place] # (Auto) 0.7 10^3/uL (0.2-0.9) 10/24/23 14:45 Eos # (Auto) 0.1 10^3/uL (0.0-0.8) 10/24/23 14:45 Baso # (Auto) 0.0 10^3/uL (0.0-0.1) 10/24/23 14:45 Nucleated RBC % (auto) 0 % 10/24/23 14:45 Nucleated RBCs # 0.0 /100WBC 10/24/23 14:45 Sodium 136 mmol/L (136-145) 10/24/23 14:45 Potassium 4.7 mmol/L (3.5-5.1) 10/24/23 14:45 Chloride 102 mmol/L (98-107) 10/24/23 14:45 Carbon Dioxide 24 mmol/L (22-29) 10/24/23 14:45 Anion Gap 14.7 (5-19) 10/24/23 14:45 BUN 14 mg/dL (6-20) 10/24/23 14:45 Creatinine 0.6 mg/dL (0.5-0.9) 10/24/23 14:45 GFR Calculation 112.5 mL/min (90-130) 10/24/23 14:45 Glucose 96 mg/dL (65-115) 10/24/23 14:45 Calculated Osmolality 282 mOsm/kg (285-295) L 10/24/23 14:45 Lactic Acid 1.0 mmol/L (0.5-2.2) 10/24/23 14:45 Calcium 9.0 mg/dL (8.5-10.5) 10/24/23 14:45 Total Bilirubin 0.3 mg/dL (0.15-1.2) 10/24/23 14:45 AST 15 U/L (0-32) 10/24/23 14:45 ALT 22 U/L (0-33) 10/24/23 14:45 Alkaline Phosphatase 67 U/L (35-105) 10/24/23 14:45 Troponin T Baseline < 6 ng/L (0-10) 10/24/23 14:45 Troponin T 120 Minute 6.00 ng/L (0-10) 10/24/23 16:13 Delta Troponin T 0.68450 ABS# (0-10) 10/24/23 16:13 NT-Pro-B Natriuret Pep < 36 pg/mL (0-125) 10/24/23 14:45 Total Protein 7.0 g/dL (6.6-8.7) 10/24/23 14:45 Albumin 4.4 g/dL (3.5-5.2) 10/24/23 14:45 Globulin 2.6 g/dL (1.3-4.6) 10/24/23 14:45 All radiology interpretation(s) finalized by discharge Discharge Plan Discharge Patient Disposition: Admitted As Inpatient Clinical Impression: Chest pain, Spontaneous dissection of coronary artery Coding Level of Care Code ED Headstart Teacher for Amado Pierson NIH stroke score NIHSS Level Of Consciousness - 1a: 0 Level Of Consciousness Questions - 1b: Both Correct Level Of Consciousness Commands - 1c: Both Correct Best Gaze - 2: Normal Visual Curran - 3: No Visual Loss Facial Palsy - 4: Normal Motor Arm Right - 5: No Drift Motor Arm Left - 5: No Drift Motor Leg Right - 6: No Drift Motor Leg Left - 6: No Drift Limb Ataxia - 7: Absent Sensory - 8: Normal Best Language - 9: No Aphasia Dysarthia - 10: Normal Extinction And Inattention - 11: 0 Score Total Score: 0
[2023-10-24] MEDS: morphine 4 mg/mL SDV 1 mL IVP (14:49)
[2023-10-24 14:51] LABS: Basophils % 0.5 %; Eosinophils # 0.1 10^3/uL (0.0-0.8); Eosinophils % 1.9 %; Hematocrit 39.6 % (36-47); Lymphocytes # 2.4 10^3/uL (0.8-4.8); Lymphocytes % 31.3 %; Mean Corpuscular HGB Conc 31.6 g/dL (30-55); Mean Corpuscular Hemoglobin 30.5 pg (27-33); Mean Corpuscular Volume 96.6 fl (85-98); Monocytes # 0.7 10^3/uL (0.2-0.9); Monocytes % 8.6 %; Neutrophils # 4.32 10^3/uL (1.8-7.7); Neutrophils % 57.3 %; Nucleated Red Blood Cells % 0 %; Platelet Count 290 10^3/cmm (157-399); White Blood Count 7.54 10^3/uL (3.29-11.43)
[2023-10-24] MEDS: aspirin 81 mg Chew Tablet 324 MG PO (14:52)
[2023-10-24] MEDS: nitroglycerin 1 gm/inch oint Pkt 0.5 INCH TOPICAL (14:53)
[2023-10-24 15:11] LABS: Troponin(5th) Baseline < 6 ng/L (0-10)
--- NOTE | 2023-10-24 15:18 | CTR_ITS ---
PROCEDURE INFORMATION: Exam: CTA Head With Contrast, Arteriography Exam date and time: 10/24/2023 3:36 PM Age: 38 years old Clinical indication: Stroke-like symptoms; Other: Left sided numbness/paresthesia TECHNIQUE: Imaging protocol: Computed tomographic angiography of the head with contrast. Exam focused on the arteries. 3D rendering (Not supervised by radiologist): MIP and/or 3D reconstructed images were created by the technologist. Radiation optimization: All CT scans at this facility use at least one of these dose optimization techniques: automated exposure control; mA and/or kV adjustment per patient size (includes targeted exams where dose is matched to clinical indication); or iterative reconstruction. Contrast material: OMNI 350; Contrast volume: 100 ml; Contrast route: INTRAVENOUS (IV); COMPARISON: CT head wo con* [id number] 10/24/2023 3:33 PM RADIATION DOSE METRICS: Total DLP (mGy-cm): 457 FINDINGS: ANTERIOR CIRCULATION: Right internal carotid artery: Intracranial segment is patent with no significant stenosis. No aneurysm. Right middle cerebral artery: No occlusion or significant stenosis. No aneurysm. Right anterior cerebral artery: No occlusion or significant stenosis. No aneurysm. Left internal carotid artery: Intracranial segment is patent with no significant stenosis. No aneurysm. Left middle cerebral artery: No occlusion or significant stenosis. No aneurysm. Left anterior cerebral artery: No occlusion or significant stenosis. No aneurysm. POSTERIOR CIRCULATION: Right vertebral artery: No occlusion or significant stenosis. No aneurysm. Left vertebral artery: No occlusion or significant stenosis. No aneurysm. Basilar artery: No occlusion or significant stenosis. No aneurysm. Right posterior cerebral artery: No occlusion or significant stenosis. No aneurysm. Left posterior cerebral artery: No occlusion or significant stenosis. No aneurysm. Brain: No definite mass, mass effect, or midline shift. Cerebral ventricles: No ventriculomegaly. Bones/joints: Unremarkable. No acute fracture. Soft tissues: Unremarkable. PROCEDURE INFORMATION: Exam: CTA Neck With Contrast Exam date and time: 10/24/2023 3:36 PM Age: 38 years old Clinical indication: Stroke-like symptoms; Other: Left sided numbness/paresthesia TECHNIQUE: Imaging protocol: Computed tomographic angiography of the neck with contrast. Exam focused on the cervical segments of the vasculature. 3D rendering (Not supervised by radiologist): MIP and/or 3D reconstructed images were created by the technologist. Radiation optimization: All CT scans at this facility use at least one of these dose optimization techniques: automated exposure control; mA and/or kV adjustment per patient size (includes targeted exams where dose is matched to clinical indication); or iterative reconstruction. Contrast material: OMNI 350; Contrast volume: 100 ml; Contrast route: INTRAVENOUS (IV); COMPARISON: CT head wo con* [id number] 10/24/2023 3:33 PM RADIATION DOSE METRICS: Total DLP (mGy-cm): 457 FINDINGS: Right common carotid artery: No stenosis. No dissection or occlusion. Right internal carotid artery: No stenosis of the extracranial segment. No dissection or occlusion. Right external carotid artery: No occlusion or stenosis of the origin. Left common carotid artery: No stenosis. No dissection or occlusion. Left internal carotid artery: No stenosis of the extracranial segment. No dissection or occlusion. Left external carotid artery: No occlusion or stenosis of the origin. Right vertebral artery: No stenosis. No dissection or occlusion. Left vertebral artery: No stenosis. No dissection or occlusion. Soft tissues: Normal. No significant soft tissue swelling. Bones/joints: No acute fracture. CT/CT angio headneck* [id number] IMPRESSION: No large vessel stenosis or occlusion. IMPRESSION: No stenosis or occlusion. REFERENCES: NASCET CRITERIA. The degree of stenosis in the cervical segment of the internal carotid artery is based on NASCET criteria. Normal is no stenosis. Mild is less than 50% stenosis. Moderate is 50-69% stenosis. Severe is 70% to 99% stenosis. Total occlusion is no detectable patent lumen.
[2023-10-24 15:21] LABS: Alanine Aminotransferase 22 U/L (0-33); Albumin Level 4.4 g/dL (3.5-5.2); Alkaline Phosphatase 67 U/L (35-105); Anion Gap 14.7 (5-19); Aspartate Amino Transferase 15 U/L (0-32); Blood Urea Nitrogen 14 mg/dL (6-20); Carbon Dioxide 24 mmol/L (22-29); Chloride 102 mmol/L (98-107); Globulin 2.6 g/dL (1.3-4.6); Glomerular Filtration Rate 112.5 mL/min (90-130); Glucose 96 mg/dL (65-115); NT Pro B Type Natriuretic Pept < 36 pg/mL (0-125); Osmolality Calculated 282 mOsm/kg (285-295); Potassium 4.7 mmol/L (3.5-5.1); Sodium 136 mmol/L (136-145); Total Bilirubin 0.3 mg/dL (0.15-1.2)
--- NOTE | 2023-10-24 15:21 | CTR_ITS ---
PROCEDURE INFORMATION: Exam: CT Head Without Contrast Exam date and time: 10/24/2023 3:33 PM Age: 38 years old Clinical indication: Stroke-like symptoms; Other: Left sided numbness TECHNIQUE: Imaging protocol: Computed tomography of the head without contrast. Radiation optimization: All CT scans at this facility use at least one of these dose optimization techniques: automated exposure control; mA and/or kV adjustment per patient size (includes targeted exams where dose is matched to clinical indication); or iterative reconstruction. Other technique: STROKE PROTOCOL was implemented. COMPARISON: No relevant prior studies available. RADIATION DOSE METRICS: Total DLP (mGy-cm): 1054 FINDINGS: Brain: Normal. No hemorrhage. Unremarkable white matter. No mass effect. Cerebral ventricles: No ventriculomegaly. Paranasal sinuses: Visualized sinuses are unremarkable. No fluid levels. Mastoid air cells: Visualized mastoid air cells are well aerated. Bones: Unremarkable. No acute fracture. Soft tissues: Unremarkable. CT/CT head wo con* [id number] IMPRESSION: No acute intracranial abnormality. ASSESSMENT: ASPECTS ([place] Stroke Program Early CT Score) is 10.
[2023-10-24] MEDS: iohexol 350 mg/mL 500 mL Btl (per mL) IV (15:40)
--- NOTE | 2023-10-24 15:53 | PM.CONSULT ---
Providers/Reason For Consult Consulting Physician/Specialty*: Jesu Mcgill MD neurology and epilepsy Reason for Consult*: Left-sided numbness and tingling and left-sided neck pain as well as mid epigastric pain in patient with left circumflex dissection assess for right cerebral versus right subcortical infarction and right carotid artery dissection History of Present Illness History of Present Illness Padmaja Haywood is a 38 year old female History of present illness: 38-year-old female who was admitted to [facility] approximately 1 week prior to this emergency room consultation. Patient was experiencing left-sided chest pain and left arm numbness at that time. The patient was evaluated by cardiology. The patient was diagnosed with left circumflex dissection and was started on aspirin Plavix and a statin medication and referred to a vascular surgeon for the left circumflex dissection. The patient has been scheduled for follow-up with the neon tube pumper later in October 2023 and according to the patient she is yet to hear from the vascular surgeon regarding the vascular surgery appointment. On 10/23/2023 at approximately 11 PM the patient began experiencing left-sided numbness involving her arm and neck and left lower extremity associated with left-sided neck pain. The patient was reported to not seek immediate medical attention and went to bed around 1 PM on 10/24/2023. Patient woke up several hours later on 10/24/2023 and was still experiencing the left-sided numbness tingling and left-sided neck pain but decided to go to work. At work the symptoms continued and the patient was evaluated by the primary care physician who instructed the patient to present to the [facility] emergency department. In the emergency room the patient was evaluated by the emergency room physician and hospitalist and neurology consult was obtained. The patient denies weakness, visual difficulty, speech difficulty, or headaches. Patient was on the phone speaking with an individual prior to my neurological assessment. The patient also stated that she recently began experiencing mid epigastric pain since being in the [facility] emergency department on 10/24/2023 as well as the left-sided numbness and tingling and left-sided neck pain which has continued since 10/23/2023. NIH score =1(secondary to abnormal sensation left arm, left leg and left side of her body) Glucose 96 Complete blood count unremarkable Drug allergies: None Current medications: Albuterol sulfate 1 inhalation 4 times a day as needed for asthma Aspirin 81 mg p.o. daily Lipitor 40 mg p.o. q. evening Plavix 75 mg p.o. daily Calcium carbonate 1000 mg p.o. twice daily as needed for reflux Metoprolol 25 mg p.o. daily Nitroglycerin 0.4 mg sublingual every 5 minutes as needed Past medical history: Left circumflex dissection recently diagnosed approximately 1 week ago Gastroesophageal reflux disease History of migraine headache Asthma History of back pain Habits: The patient admits to occasional alcohol use. She denied other drug use. Patient denied smoking. Family history: Remarkable for a mother who had a stroke recently within the last 2 to 3 months Last menstrual period: Patient reports having a tubal ligation. She denies being . Review of Systems General: Reports: 10 or more systems reviewed and unremarkable except in HPI and below Medications/Allergies Home Medications Medication Instructions Recorded Confirmed Last Taken Type albuterol sulfate 90 mcg/actuation 1 inh inhalation QID PRN asthma 10/17/23 10/17/23 10/11/20 History aerosol inhaler calcium carbonate 1,000 mg PO BID PRN reflux 10/17/23 10/17/23 Unknown History aspirin 81 mg tablet,delayed 81 mg PO DAILY 30 days #30 tabs 10/18/23 Unknown Rx release atorvastatin 40 mg tablet 40 mg PO BEDTIME 30 days #30 tabs 10/18/23 Unknown Rx clopidogrel 75 mg tablet 75 mg PO DAILY 30 days #30 tabs 10/18/23 Unknown Rx metoprolol succinate 25 mg 25 mg PO DAILY 30 days #30 tabs 10/18/23 Unknown Rx tablet,extended release 24 hr nitroglycerin 0.4 mg sublingual 0.4 mg sublingual Q5M PRN Chest 10/18/23 Unknown Rx tablet Pain 30 days #30 tabs Allergies Allergy/AdvReac Type Severity Reaction Status Date / Time No Known Allergies Allergy Verified 04/04/19 16:27 PFSH Acute PFSH: Medical History History of femur fracture left distal femur fracture, hairline in 2020, non-surgical management Migraine Asthma childhood asthma, still has prn albuterol but very rarely uses 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 Surgical History History of tubal ligation (2022) History of cholecystectomy (2019) History of gastric restrictive surgery (2019) gastric sleeve Family History Denies family history of Diabetes CAD (coronary artery disease) Clotting disorder Dementia Hyperlipidemia Chronic kidney disease (CKD) Hypertension Social History Smoking and tobacco/nicotine status: never used tobacco/nicotine Alcohol intake: current Alcohol intake frequency: holidays/special occasions only Substance/Drug Use: never Female Reproductive History: Para: 2 Spontaneous abortions: Yes (2) Vitals/I&O/Wt Last Vital Signs Temp 98.3 F 10/24/23 14:30 Pulse 63 10/24/23 15:49 Resp 19 H 10/24/23 15:49 BP 155/79 10/24/23 15:49 Pulse Ox 100 10/24/23 15:49 O2 Del Method Room Air 10/24/23 14:30 Physical Exam Narrative: NIH score =1(secondary to abnormal sensation left arm, left leg and left side of her body) Glucose 96 Complete blood count unremarkable The patient is alert and oriented x 3. Speech fluent. Head normocephalic. Neck supple. Cranial nerves II through XII intact. Pupils round reactive to light and accommodation. Extraocular movements intact. Motor testing 5/5 bilaterally. There was no drift. Patient was able to ambulate and get off of the gurney to sit in the CT scanner without assistance. Sensory examination patient reported abnormal sensation over the left side of her body. There was no ataxia. Throat clear. Lungs clear. Heart regular rhythm and rate. Extremities were negative for clubbing cyanosis or edema. Data 10/24/23 14:45 10/24/23 14:45 A&P Assessment and plan (1) TIA involving right internal carotid artery: Impression: 1. Left-sided numbness and tingling and left-sided neck pain as well as mid epigastric pain in patient with left circumflex dissection assess for right cerebral versus right subcortical infarction and right carotid artery dissection. Note: Since the patient reported the symptoms began on 10/23/2023 at 11 PM and the patient did not present to the [facility] emergency room until the afternoon of 10/24/2023, patient was not a candidate for intravenous thrombolytics and no intravenous thrombolytics were administered. Also patient was recently diagnosed with left circumflex dissection and is currently on aspirin, Plavix and Lipitor. Plan: 1. Agree with obtaining noncontrast head CT and CT angiogram of the head and neck to assess for right internal carotid artery dissection 2. Agree agree with obtaining head MRI with and without contrast to assess for right subcortical/right thalamic infarction 3. Give patient and patient's family stroke pamphlet 4. Agree with current treatment with aspirin, Plavix and Lipitor per cardiac and NIH stroke protocol 5. Neurochecks and vital signs per NIH stroke protocol 6. Agree with plans to have patient follow-up with cardiology and to be evaluated by vascular surgeon for the left circumflex dissection Consult Attestations Medical Necessity Statement: The patient was evaluated by neurology secondary to complaints of left-sided numbness tingling/paresthesias and left-sided neck pain assess for right carotid dissection versus right subacute subcortical infarction Coding Level of Care Code 81129 Diagnoses TIA involving right internal carotid artery G45.1
[2023-10-24] MEDS: lidocaine 2% viscous 15 ML, aluminum-mag hydrox-simethicon 30 ML, sucralfate oral liq 1 GM PO (15:59)
--- NOTE | 2023-10-24 16:20 | MRR_ITS ---
PROCEDURE INFORMATION: Exam: MR Head Without Contrast Exam date and time: 10/24/2023 5:21 PM Age: 38 years old Clinical indication: Dizziness; Additional info: CVA, called er to have screening form completed and patient brought over @3288 TECHNIQUE: Imaging protocol: Magnetic resonance imaging of the head without contrast. COMPARISON: CT angio headneck* [id number] 10/24/2023 3:36 PM FINDINGS: Brain: Normal. No acute infarct. No hemorrhage. No significant white matter disease. No edema. No abnormal parenchymal enhancement. Cerebral ventricles: Normal. No ventriculomegaly. Bones: Unremarkable. Paranasal sinuses: Normal as visualized. No acute sinusitis. Mastoid air cells: Normal as visualized. No mastoid effusion. Orbital cavities: Unremarkable. Soft tissues: Unremarkable. MR/MR head wo/w con [id number] IMPRESSION: No acute findings.
--- NOTE | 2023-10-24 16:22 | P.HP_ITS ---
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 Patient tells me that her symptoms started last night at about 11 PM, when she started to develop numbness and tingling of her left arm, left leg, no facial numbness, no word finding difficulty no focal weakness, but did have paresthesias in that distribution, she could not get any rest last night but finally fell asleep a few hours after. She was able to wake up this morning, continue to have numbness and tingling in the left arm, left leg, and subsequently developed left neck pain, then started developing left shoulder pain and left chest pain. She was able to walk she went into work, and then due to persistence of her symptoms and now developing more episodes of chest pain, she went to her primary care provider, and who sent him to come to the emergency room. During my initial examination, she complained of numbness and tingling in the left arm, left leg, no facial numbness, no trouble coordinating, [id number], [id number] normal, pupils equal round reactive to light, no word finding difficulty no facial droop, no focal weakness, her NIH stroke scale was roughly 1. She is out of the tPA window, my immediate concern was as she was recently here for a coronary artery dissection, there was concerns for possible fibromuscular dysplasia or Erler's Danlos syndrome or Marfan syndrome, concern was for any carotid or cranial artery dissections,. She was examined, immediately CT head CTA head and neck were ordered. I spoke to Dr. Mcgill about the case, my concerns, she is already received aspirin, recommended to proceed with CT head, CT head and neck, he would come and evaluate patient. Patient was reexamined just before she went back for her CT scan, she tells me that the numbness and tingling, of her left arm and left leg have almost completely resolved, now she is having severe left chest pain and epigastric discomfort, we discussed giving her a GI cocktail. Her initial troponin was within normal limits. EKG no acute ST-T wave changes. Chest x-ray no mediastinal widening. She denies any pain radiating to her back, no back pain. But is reporting left-sided neck pain. CT of the head and neck and CTA were immediately ordered. CT head no acute findings. CTA head and neck no acute findings. Spoke to Dr. cMgill, he was worried about the possibility of a thalamic stroke, given her symptoms, she is out of the tPA window, NIH stroke scale is 1, recommended inpatient monitoring, with MRI of the head, and continued inpatient monitoring Review of Systems 2 Const: Denies: fever(s) Eyes: Denies: change in vision Card: Reports: chest pain Resp: Denies: dyspnea GI: Denies: abdominal pain : Denies: flank pain Musc: Reports: neck pain; Denies: back pain Skin/Breast: Denies: rash Neuro: Reports: numbness in extremities and sensory changes; Denies: headache(s), weakness in extremities, lack of coordination, difficulty walking, frequent falls, dizziness, vertigo, confusion, Slurred speech present, difficulty communicating thoughts, seizure-like activity or restless legs Medications/Allergies Home Medications Medication Instructions Recorded Confirmed Last Taken Type albuterol sulfate 90 mcg/actuation 1 inh inhalation QID PRN asthma 10/17/23 10/17/23 10/11/20 History aerosol inhaler calcium carbonate 1,000 mg PO BID PRN reflux 10/17/23 10/17/23 Unknown History aspirin 81 mg tablet,delayed 81 mg PO DAILY 30 days #30 tabs 10/18/23 Unknown Rx release atorvastatin 40 mg tablet 40 mg PO BEDTIME 30 days #30 tabs 10/18/23 Unknown Rx clopidogrel 75 mg tablet 75 mg PO DAILY 30 days #30 tabs 10/18/23 Unknown Rx metoprolol succinate 25 mg 25 mg PO DAILY 30 days #30 tabs 10/18/23 Unknown Rx tablet,extended release 24 hr nitroglycerin 0.4 mg sublingual 0.4 mg sublingual Q5M PRN Chest 10/18/23 Unknown Rx tablet Pain 30 days #30 tabs Allergies Allergy/AdvReac Type Severity Reaction Status Date / Time No Known Allergies Allergy Verified 04/04/19 16:27 PFSH Acute 2 PFSH: Medical History History of femur fracture left distal femur fracture, hairline in 2020, non-surgical management Migraine Asthma childhood asthma, still has prn albuterol but very rarely uses History of recurrent miscarriages 2 from 3881-8328 Surgical History History of tubal ligation (2022) History of cholecystectomy (2019) History of gastric restrictive surgery (2019) gastric sleeve Family History Denies family history of Diabetes CAD (coronary artery disease) Clotting disorder Dementia Hyperlipidemia Chronic kidney disease (CKD) Hypertension Social History Smoking and tobacco/nicotine status: never used tobacco/nicotine Alcohol intake: current Alcohol intake frequency: holidays/special occasions only Substance/Drug Use: never Female Reproductive History: Para: 2 Spontaneous abortions: Yes (2) Vitals/I&O/Wt Last Vital Signs Temp 98.3 F 10/24/23 14:30 Pulse 63 10/24/23 15:49 Resp 19 H 10/24/23 15:49 BP 155/79 10/24/23 15:49 Pulse Ox 100 10/24/23 15:49 O2 Del Method Room Air 10/24/23 14:30 Physical Exam 2 Const: COMMON NORMALS: no acute distress and patient oriented x3 HENMT: COMMON NORMALS: normocephalic HEAD & SCALP: normocephalic Neck/C-Spine: COMMON NORMALS: no JVD Resp: COMMON NORMALS: normal respiratory effort, No retractions, No use of accessory muscles and clear to auscultation bilaterally AUSCULTATION: clear to auscultation bilaterally Cardio: COMMON NORMALS: regular rate, regular rhythm, S1 normal heart sound present and S2 normal heart sound present RATE: regular rate RHYTHM: r egular rhythm HEART SOUNDS: S1 normal heart sound present and S2 normal heart sound present GI: COMMON NORMALS: Normal to inspection, nondistended, normoactive bowel sounds present, Soft to palpation and non-tender Extremity: COMMON NORMALS: no calf tenderness and no pedal edema Neuro: COMMON NORMALS: patient oriented x3, CN's II-XII intact bilaterally, moves all extremities and no focal motor deficits OTHER: Paresthesias left arm, left hand Paresthesias, left leg left foot ? No facial numbness or tingling ? No numbness or tingling or loss of sensation of her tongue ? No visual deficits ? [id number] normal, [id number]-jf-vrbx normal Psych: COMMON NORMALS: mental status grossly normal Data 10/24/23 14:45 10/24/23 14:45 A&P Assessment and plan (1) Spontaneous dissection of coronary artery: (2) Chest pain: (3) Acute CVA (cerebrovascular accident): Plan Acute CVA ? With left arm, left leg paresthesias ? No other focal neurologic deficits ? NIH stroke scale 1 ? Symptoms started 11 PM, out of tPA window ? CT head ? CT/CT head wo con* [id number] IMPRESSION: No acute intracranial abnormality. ? CTA head and neck ? CT/CT angio headneck* [id number] IMPRESSION: No large vessel stenosis or occlusion. IMPRESSION: No stenosis or occlusion ? Plan ? Allow for permissive hypertension ? Neurochecks ? NIH stroke scale ? Aspiration precautions ? PT OT ? Continue aspirin, statin, Plavix ? Order hypercoagulable panel factor V Leiden, Antithrombin III, prothrombin gene homocystine, antiphospholipid ? Recent hospitalization for spontaneous coronary artery dissection, concerns for fibromuscular dysplasia ? Order MRI of the brain ? Full code ? Lovenox for DVT prophylaxis Chest discomfort ? 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 Initial EKG no acute ST-T wave changes -Initial troponin within normal limits plan ? Plan ? Serial EKGs consult once, telemetry monitoring -Continue aspirin, statin, Plavix ? Cardiology has been consulted by ER ? Nitropatch currently on for chest pain Full code ? Lovenox for DVT prophylaxis Attestations 2 Medical Necessity Statement*: Patient requires hospitalization for acute CVA concerns, chest discomfort, inpatient, greater than 2 midnights Diagnoses Spontaneous dissection of coronary artery I25.42 Chest pain R07.9 Acute CVA (cerebrovascular accident) I63.9
[2023-10-24 16:41] LABS: Troponin 5 2HR Delta 0.00001 ABS# (0-10)
[2023-10-24 17:00] LABS: Homocysteine 6.59 umol/l (0-15)
[2023-10-24] MEDS: gadobenate dimeglumine 20 mL vial IV (17:30)
--- NOTE | 2023-10-24 18:39 | ECG_ITS ---
[facility] Test Date: 2023-10-24 Pat Name: Padmaja Haywood Department: Room: 105 Gender: Female [employer]: : 1985 Requested By: Floyd Rangel Order Number: [id number] Zakiya MD: Jl Henderson M.D. Measurements Intervals [place] Rate: 67 P: 40 CA: 176 QRS: 22 QRSD: 103 T: 30 QT: 393 QTc: 417 Interpretive Statements SINUS RHYTHM Compared to ECG 10/24/2023 14:34:34 Sinus arrhythmia no longer present Myocardial infarct finding no longer present Electronically Signed On 10-25-2023 11:24:16 CDT by Jl Henderson M.D. [email or web address]
--- NOTE | 2023-10-24 19:09 | P.CONIM_ITS ---
Providers/Reason For Consult 2 Consulting Physician/Specialty*: Dr. Fountain Reason for Consult*: Chest pain Requesting Physician: Dr. 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 Patient in general denies PND orthopnea shortness of breath and diaphoresis. Twelve-lead EKG showed sinus rhythm no other significant ST's ST changes. Medications/Allergies Home Medications Medication Instructions Recorded Confirmed Last Taken Type albuterol sulfate 90 mcg/actuation 1 inh inhalation QID PRN asthma 10/17/23 10/17/23 10/11/20 History aerosol inhaler calcium carbonate 1,000 mg PO BID PRN reflux 10/17/23 10/17/23 Unknown History aspirin 81 mg tablet,delayed 81 mg PO DAILY 30 days #30 tabs 10/18/23 Unknown Rx release atorvastatin 40 mg tablet 40 mg PO BEDTIME 30 days #30 tabs 10/18/23 Unknown Rx clopidogrel 75 mg tablet 75 mg PO DAILY 30 days #30 tabs 10/18/23 Unknown Rx metoprolol succinate 25 mg 25 mg PO DAILY 30 days #30 tabs 10/18/23 Unknown Rx tablet,extended release 24 hr nitroglycerin 0.4 mg sublingual 0.4 mg sublingual Q5M PRN Chest 10/18/23 Unknown Rx tablet Pain 30 days #30 tabs Allergies Allergy/AdvReac Type Severity Reaction Status Date / Time No Known Allergies Allergy Verified 04/04/19 16:27 PFSH Acute 2 PFSH: Medical History History of femur fracture left distal femur fracture, hairline in 2020, non-surgical management Migraine Asthma childhood asthma, still has prn albuterol but very rarely uses 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 Surgical History History of tubal ligation (2022) History of cholecystectomy (2019) History of gastric restrictive surgery (2019) gastric sleeve Family History Denies family history of Diabetes CAD (coronary artery disease) Clotting disorder Dementia Hyperlipidemia Chronic kidney disease (CKD) Hypertension Social History Smoking and tobacco/nicotine status: never used tobacco/nicotine Alcohol intake: current Alcohol intake frequency: holidays/special occasions only Substance/Drug Use: never Female Reproductive History: Para: 2 Spontaneous abortions: Yes (2) Vitals/I&O/Wt Last Vital Signs Temp 98.3 F 10/24/23 14:30 Pulse 85 10/24/23 18:25 Resp 18 10/24/23 18:25 BP 115/66 10/24/23 18:25 Pulse Ox 97 10/24/23 18:25 O2 Del Method Room Air 10/24/23 14:30 Physical Exam 2 Const: OTHER: GENERAL: Patient is alert, awake and oriented x3. NECK: No jugular vein distension. HEENT: No cyanosis. No icterus. No pallor. HEART: Regular S1 and S2. No murmur, rub or gallop. LUNGS: Clear to auscultate bilaterally. ABDOMEN: Soft, nontender and nondistended. Positive bowel sounds. No guarding, rebound or tenderness. CENTRAL NERVOUS SYSTEM: Grossly nonfocal. EXTREMITIES: Lower extremities without edema bilaterally. Data 10/24/23 14:45 10/24/23 14:45 A&P Assessment and plan (1) Chest pain: Patient has been ruled out for acute coronary syndrome chest pain could be nonspecific however cannot rule out coronary spasm, advise monitoring patient on the telemetry continue aspirin statin clopidogrel beta-marry add Nitropaste. Serial EKG and cardiac markers will evaluate. (2) Acute CVA (cerebrovascular accident): Numbness tingling of the left side could be acute CVA, treatment as per medicine and neurology Coding Level of Care Code Acute Code for [facility] Diagnoses Chest pain R07.9 Acute CVA (cerebrovascular accident) I63.9
--- NOTE | 2023-10-24 20:34 | ECG_ITS ---
[facility] Test Date: 2023-10-24 Pat Name: Padmaja Haywood Department: Room: 105 Gender: Female Security Monitor: : 1985 Requested By: Floyd Rangel Order Number: [id number] Zakiya MD: Jl Henderson M.D. Measurements Intervals [place] Rate: 63 P: 43 [place]: 178 QRS: 20 QRSD: 97 T: 31 QT: 382 QTc: 393 Interpretive Statements SINUS RHYTHM Compared to ECG 10/24/2023 18:39:06 No significant changes Electronically Signed On 10-25-2023 11:24:10 CDT by Jl Henderson M.D. [email or web address] [email or web address] behavioral health [email or web address] [email or web address] [email or web address] general [email or web address]/[id number]
[2023-10-24] MEDS: pantoprazole 40 mg SDV IVP (20:39)
[2023-10-24] MEDS: sodium chloride 0.9% 1,000 ML 75 ML IV (20:39)
[2023-10-24] MEDS: atorvastatin 40 mg Tablet PO (20:39)
[2023-10-24] MEDS: enoxaparin 40 mg/0.4 mL Syringe SUBCUT (20:40)
[2023-10-24 20:46] LABS: Thyroid Stimulating Hormone 0.83 uIU/mL (0.27-4.20)
[2023-10-24 21:16] LABS: Troponin 5 6HR Delta 0.00001 ng/L (0-12)
[2023-10-25] VITALS (10 sets, daily range): BP systolic 109–127; BP diastolic 59–80; PULSE 65–96; RESP 12–20; TEMP 36.4–36.9; O2SAT 96–99
[2023-10-25 04:17] LABS: Basophils % 0.3 %; Eosinophils # 0.2 10^3/uL (0.0-0.8); Eosinophils % 2.3 %; Hematocrit 37.7 % (36-47); Lymphocytes # 2.2 10^3/uL (0.8-4.8); Mean Corpuscular HGB Conc 31.3 g/dL (30-55); Mean Corpuscular Hemoglobin 30.2 pg (27-33); Mean Corpuscular Volume 96.4 fl (85-98); Mean Platelet Volume 10.4 fL (7.4-10.4); Monocytes # 0.7 10^3/uL (0.2-0.9); Monocytes % 9.6 %; Neutrophils # 3.96 10^3/uL (1.8-7.7); Neutrophils % 56.4 %; Nucleated Red Blood Cells % 0 %; Platelet Count 266 10^3/cmm (157-399); Red Blood Count 3.91 10^6/uL (3.85-5.65); Red Cell Distribution Width 13.1 % (12.1-15.1); White Blood Count 7.01 10^3/uL (3.29-11.43)
[2023-10-25 04:34] LABS: Alanine Aminotransferase 31 U/L (0-33); Albumin Level 3.9 g/dL (3.5-5.2); Alkaline Phosphatase 73 U/L (35-105); Anion Gap 12.7 (5-19); Aspartate Amino Transferase 23 U/L (0-32); Blood Urea Nitrogen 11 mg/dL (6-20); Calcium 8.2 mg/dL (8.5-10.5); Carbon Dioxide 23 mmol/L (22-29); Chloride 108 mmol/L (98-107); Creatinine Clr Calc Pharmacy 154.6882; Globulin 2.7 g/dL (1.3-4.6); Glomerular Filtration Rate 138.8 mL/min (90-130); Glucose 122 mg/dL (65-115); Magnesium 2.1 mg/dL (1.7-2.3); Osmolality Calculated 291 mOsm/kg (285-295); Phosphorus 3.8 mg/dL (2.5-4.5); Potassium 3.7 mmol/L (3.5-5.1); Sodium 140 mmol/L (136-145); Total Bilirubin 0.4 mg/dL (0.15-1.2); Total Protein 6.6 g/dL (6.6-8.7)
[2023-10-25] MEDS: sodium chloride 0.9% 1,000 ML 75 ML IV ×2 (09:41→23:07)
[2023-10-25] MEDS: clopidogrel 75 mg Tablet PO (09:41)
[2023-10-25] MEDS: pantoprazole 40 mg SDV IVP ×2 (09:41→20:03)
[2023-10-25] MEDS: aspirin 81 mg EC Tablet PO (09:41)
--- NOTE | 2023-10-25 11:51 | P.PN_ITS ---
Subjective 2 Subjective: Patient was seen this morning, family friend at bedside, she is alert oriented x 4, following all commands no focal weakness, no nausea, no vomiting, no slurring of her speech, no focal paresthesias, no chest pain, she tells me that after the GI cocktail most of her chest discomfort resolved, no neck pain, Vitals/I&O/Wt Last Vital Signs Temp 97.8 F 10/25/23 08:00 Pulse 94 10/25/23 08:00 Resp 14 10/25/23 08:00 BP 123/59 10/25/23 08:00 Pulse Ox 98 10/25/23 07:26 O2 Del Method Room Air 10/25/23 07:26 10/24/23 10/25/23 10/25/23 22:59 06:59 14:59 Intake Total 480 / 480 1097.5 / 1097.5 Balance 480 / 480 1097.5 / 1097.5 Weight last 48 hrs Weight 87.317 kg Weight 87.317 kg Physical Exam 2 Const: COMMON NORMALS: no acute distress and patient oriented x3 Resp: COMMON NORMALS: normal respiratory effort, No retractions, No use of accessory muscles and clear to auscultation bilaterally AUSCULTATION: clear to auscultation bilaterally Cardio: COMMON NORMALS: regular rate, regular rhythm, S1 normal heart sound present and S2 normal heart sound present RATE: regular rate RHYTHM: r egular rhythm HEART SOUNDS: S1 normal heart sound present and S2 normal heart sound present GI: COMMON NORMALS: Normal to inspection, nondistended, normoactive bowel sounds present and non-tender Extremity: COMMON NORMALS: no pedal edema Neuro: COMMON NORMALS: patient oriented x3, CN's II-XII intact bilaterally, moves all extremities, no focal motor deficits and no sensory deficits noted Psych: COMMON NORMALS: mental status grossly normal Data 10/25/23 03:41 10/25/23 03:41 A&P Assessment and plan (1) Spontaneous dissection of coronary artery: (2) Chest pain: (3) Acute CVA (cerebrovascular accident): Plan Acute CVA vs TIA ? With left arm, left leg paresthesias, resolved ? No other focal neurologic deficits ? NIH stroke scale 1, currently resolved ? Symptoms started 11 PM, out of tPA window ? CT head ? CT/CT head wo con* [id number] IMPRESSION: No acute intracranial abnormality. ? CTA head and neck ? CT/CT angio headneck* [id number] IMPRESSION: No large vessel stenosis or occlusion. IMPRESSION: No stenosis or occlusion -MRI brain within normal limits ? Plan ? Allow for permissive hypertension ? Neurochecks ? NIH stroke scale ? Aspiration precautions ? PT OT ? Continue aspirin, statin, Plavix ? Order hypercoagulable panel factor V Leiden, Antithrombin III, prothrombin gene homocystine, antiphospholipid ? Recent hospitalization for spontaneous coronary artery dissection, concerns for fibromuscular dysplasia ? Monitor blood pressures closely ? Full code ? Lovenox for DVT prophylaxis Chest discomfort ? 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 Initial EKG no acute ST-T wave changes -Initial troponin within normal limits plan ? Plan ? Serial EKGs consult once, telemetry monitoring -Continue aspirin, statin, Plavix ? Cardiology has been consulted by ER, medical management ? Nitropatch currently on for chest pain Full code ? Lovenox for DVT prophylaxis Attestations 2 Medical Necessity Statement*: Patient requires hospitalization for acute CVA TIA, chest pain Diagnoses Spontaneous dissection of coronary artery I25.42 Chest pain R07.9 Acute CVA (cerebrovascular accident) I63.9
[2023-10-25] MEDS: acetaminophen 325 mg Tablet 650 MG PO (18:16)
[2023-10-25] MEDS: atorvastatin 40 mg Tablet PO (20:03)
[2023-10-25] MEDS: enoxaparin 40 mg/0.4 mL Syringe SUBCUT (20:03)
--- NOTE | 2023-10-25 21:45 | P.PN_ITS ---
Subjective 2 Subjective: No overnight event cardio simpson, rule out for CVA. Vitals/I&O/Wt Last Vital Signs Temp 97.9 F 10/25/23 20:00 Pulse 96 10/25/23 20:00 Resp 18 10/25/23 20:00 BP 113/61 10/25/23 20:00 Pulse Ox 98 10/25/23 20:00 O2 Del Method Room Air 10/25/23 20:00 10/25/23 10/25/23 10/25/23 06:59 14:59 22:59 Intake Total 1457.5 / 1457.5 480 / 1937.5 Balance 1457.5 / 1457.5 480 / 1937.5 Weight last 48 hrs Weight 192 lb 8 oz Weight 192 lb 8 oz Physical Exam 2 Const: OTHER: GENERAL: Patient is alert, awake and oriented x3. NECK: No jugular vein distension. HEENT: No cyanosis. No icterus. No pallor. HEART: Regular S1 and S2. No murmur, rub or gallop. LUNGS: Clear to auscultate bilaterally. CENTRAL NERVOUS SYSTEM: Grossly nonfocal. EXTREMITIES: Lower extremities without edema bilaterally. Data 10/25/23 03:41 10/25/23 03:41 A&P Assessment and plan (1) Chest pain: No more chest pain rule out for acute coronary syndrome., Chest pain could be nonspecific and noncardiac however cannot rule out coronary spasm, patient would not like to take isosorbide mononitrate as it gives her headache and she has migraines. Advised to continue aspirin and statin Plavix and sublingual nitroglycerin as needed. (2) Acute CVA (cerebrovascular accident): MRI CT scan did not reveal stroke, patient does not have any more symptoms. Continue aspirin Plavix statin Plan Chronic cardiovascular perspective patient can be discharged home tomorrow Attestations 2 Medical Necessity Statement*: Patient require continuation hospitalization for above defined care Coding Level of Care Code Acute Code for [facility] Diagnoses Chest pain R07.9 Acute CVA (cerebrovascular accident) I63.9
[2023-10-25] MEDS: sucralfate 1 gm/10 mL Oral Liq UDC PO (23:06)
[2023-10-26 03:12] VITALS: BP 114/64; PULSE 75; RESP 20; TEMP 36.8; O2SAT 96
[2023-10-26 04:27] LABS: Basophils % 0.7 %; Eosinophils # 0.2 10^3/uL (0.0-0.8); Eosinophils % 3.6 %; Lymphocytes # 2.4 10^3/uL (0.8-4.8); Lymphocytes % 39.9 %; Mean Corpuscular HGB Conc 31.4 g/dL (30-55); Mean Corpuscular Hemoglobin 30.5 pg (27-33); Mean Corpuscular Volume 97.3 fl (85-98); Mean Platelet Volume 10.4 fL (7.4-10.4); Monocytes # 0.5 10^3/uL (0.2-0.9); Monocytes % 8.8 %; Neutrophils # 2.85 10^3/uL (1.8-7.7); Neutrophils % 46.7 %; Nucleated Red Blood Cells % 0 %; Platelet Count 253 10^3/cmm (157-399); Red Cell Distribution Width 13.1 % (12.1-15.1); White Blood Count 6.11 10^3/uL (3.29-11.43)
[2023-10-26 05:06] LABS: Alanine Aminotransferase 22 U/L (0-33); Albumin Level 3.7 g/dL (3.5-5.2); Alkaline Phosphatase 66 U/L (35-105); Anion Gap 14.8 (5-19); Aspartate Amino Transferase 12 U/L (0-32); Blood Urea Nitrogen 8 mg/dL (6-20); Carbon Dioxide 21 mmol/L (22-29); Chloride 109 mmol/L (98-107); Creatinine Clr Calc Pharmacy 197.2757; Globulin 2.4 g/dL (1.3-4.6); Glomerular Filtration Rate 179.6 mL/min (90-130); Glucose 95 mg/dL (65-115); Osmolality Calculated 290 mOsm/kg (285-295); Potassium 3.8 mmol/L (3.5-5.1); Sodium 141 mmol/L (136-145); Total Bilirubin 0.3 mg/dL (0.15-1.2); Total Protein 6.1 g/dL (6.6-8.7)
[2023-10-26 05:32] VITALS: PULSE 82
[2023-10-26 07:32] VITALS: BP 118/80; PULSE 72; RESP 20; TEMP 36.7; O2SAT 97
[2023-10-26 08:00] VITALS: BP 118/80; PULSE 72; RESP 20; TEMP 36.7
[2023-10-26] MEDS: clopidogrel 75 mg Tablet PO (08:13)
[2023-10-26] MEDS: pantoprazole 40 mg SDV IVP (08:13)
[2023-10-26] MEDS: aspirin 81 mg EC Tablet PO (08:13)
[2023-10-26] MEDS: metoprolol tartrate 25 mg Tablet 12.5 MG PO (09:13)
--- NOTE | 2023-10-26 10:19 | PM.DCS ---
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 Patient tells me that her symptoms started last night at about 11 PM, when she started to develop numbness and tingling of her left arm, left leg, no facial numbness, no word finding difficulty no focal weakness, but did have paresthesias in that distribution, she could not get any rest last night but finally fell asleep a few hours after. She was able to wake up this morning, continue to have numbness and tingling in the left arm, left leg, and subsequently developed left neck pain, then started developing left shoulder pain and left chest pain. She was able to walk she went into work, and then due to persistence of her symptoms and now developing more episodes of chest pain, she went to her primary care provider, and who sent him to come to the emergency room. During my initial examination, she complained of numbness and tingling in the left arm, left leg, no facial numbness, no trouble coordinating, [id number], [id number] normal, pupils equal round reactive to light, no word finding difficulty no facial droop, no focal weakness, her NIH stroke scale was roughly 1. She is out of the tPA window, my immediate concern was as she was recently here for a coronary artery dissection, there was concerns for possible fibromuscular dysplasia or Erler's Danlos syndrome or Marfan syndrome, concern was for any carotid or cranial artery dissections,. She was examined, immediately CT head CTA head and neck were ordered. I spoke to Dr. Mcgill about the case, my concerns, she is already received aspirin, recommended to proceed with CT head, CT head and neck, he would come and evaluate patient. Patient was reexamined just before she went back for her CT scan, she tells me that the numbness and tingling, of her left arm and left leg have almost completely resolved, now she is having severe left chest pain and epigastric discomfort, we discussed giving her a GI cocktail. Her initial troponin was within normal limits. EKG no acute ST-T wave changes. Chest x-ray no mediastinal widening. She denies any pain radiating to her back, no back pain. But is reporting left-sided neck pain. CT of the head and neck and CTA were immediately ordered. CT head no acute findings. CTA head and neck no acute findings. Spoke to Dr. Mgcill, he was worried about the possibility of a thalamic stroke, given her symptoms, she is out of the tPA window, NIH stroke scale is 1, recommended inpatient monitoring, with MRI of the head, and continued inpatient monitoring Patient was admitted [facility] Acute CVA ? With left arm, left leg paresthesias ? No other focal neurologic deficits ? NIH stroke scale 1 ? Symptoms started 11 PM, out of tPA window ? CT head ? CT/CT head wo con* [id number] IMPRESSION: No acute intracranial abnormality. ? CTA head and neck ? CT/CT angio headneck* [id number] IMPRESSION: No large vessel stenosis or occlusion. IMPRESSION: No stenosis or occlusion MRI brain MR/MR head wo/w con [id number] IMPRESSION: No acute findings. ? Allowed for permissive hypertension, transitioned to metoprolol ? Neurochecks, WNL ? NIH stroke scale, WNL ? Continue aspirin, statin, Plavix on discharge ? Order hypercoagulable panel factor V Leiden, Antithrombin III, prothrombin gene homocystine, antiphospholipid ? Recent hospitalization for spontaneous coronary artery dissection, concerns for fibromuscular dysplasia, follow up as outpatient ? Patient was monitored as inpatient, overall clinically improved, asymptomatic on discharge ambulating without significant symptomatology, no facial droop, no slurring of words, no focal paresthesias -As patient symptomatology has resolved, likely patient has had a thalamic stroke versus TIA -Given that patient had a spontaneous coronary artery dissection, now with concerns for stroke, her young age, I am not referred her to vascular surgery in [place] although her ESR was within normal limits, her DAVID panel was within normal limits will refer for further vascular workup -Certainly can consider referral for workup for vasculitis/rheumatologic workup, through rheumatology Chest discomfort ? 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 Initial EKG no acute ST-T wave changes -Initial troponin within normal limits plan ? Serial EKGs consult once, telemetry monitoring -Continue aspirin, statin, Plavix ? Cardiology has been consulted by ER, continue medical management, discharged on metoprolol 12.5 mg twice daily Physical Exam Const: COMMON NORMALS: no acute distress and patient oriented x3 Resp: COMMON NORMALS: normal respiratory effort, No retractions, No use of accessory muscles and clear to auscultation bilaterally AUSCULTATION: clear to auscultation bilaterally Cardio: COMMON NORMALS: regular rate, regular rhythm, S1 normal heart sound present and S2 normal heart sound present RATE: regular rate RHYTHM: regular rhythm HEART SOUNDS: S1 normal heart sound present and S2 normal heart sound present GI: COMMON NORMALS: Normal to inspection, nondistended, normoactive bowel sounds present and non-tender Extremity: COMMON NORMALS: no pedal edema Neuro: COMMON NORMALS: patient oriented x3 Psych: COMMON NORMALS: mental status grossly normal Discharge Data Studies Completed and Pending Completed Studies During Hospitalization Category Date Time Status CT head wo con* [id number] Stat Cat Scan 10/24/23 15:21 Completed CTA head neck [CT angio headneck* [id number]] Stat Cat Scan 10/24/23 15:18 Completed XR chest 1V portable [id number] Stat Exams 10/24/23 14:34 Completed MR head wo/w con [id number] Stat MRI 10/24/23 16:20 Completed Pending at discharge Category Date Time Status Antiphospholipid Antibody Ward Routine Lab 10/24/23 20:47 Received CARDIOLIPIN AB (IGA,IGG,IGM) Stat Lab 10/24/23 16:34 Received Complete Blood Count w/Auto AM LABS Lab 10/27/23 04:00 Ordered Complete Blood Count w/Auto AM LABS Lab 10/28/23 04:00 Ordered Comprehensive Metabolic Panel AM LABS Lab 10/27/23 04:00 Ordered Comprehensive Metabolic Panel AM LABS Lab 10/28/23 04:00 Ordered Factor 5 Leiden Mutation Stat Lab 10/24/23 16:34 Received PROTHROMBIN (FACTOR II) [id number] Stat Lab 10/24/23 16:34 Received Radiology Impressions Chest X-Ray 10/24/23 14:34 Impression: No acute lung process is appreciated. Head/Neck CTA 10/24/23 15:18 IMPRESSION: No large vessel stenosis or occlusion. IMPRESSION: No stenosis or occlusion. REFERENCES: NASCET CRITERIA. The degree of stenosis in the cervical segment of the internal carotid artery is based on NASCET criteria. Normal is no stenosis. Mild is less than 50% stenosis. Moderate is 50-69% stenosis. Severe is 70% to 99% stenosis. Total occlusion is no detectable patent lumen. Head CT 10/24/23 15:21 IMPRESSION: No acute intracranial abnormality. ASSESSMENT: ASPECTS ([place] Stroke Program Early CT Score) is 10. Head MRI 10/24/23 16:20 IMPRESSION: No acute findings. Laboratory Results WBC 6.11 10^3/uL (3.29-11.43) 10/26/23 03:30 RBC 3.70 10^6/uL (3.85-5.65) L 10/26/23 03:30 Hgb 11.30 g/dL (11.27-16.99) 10/26/23 03:30 Hct 36.0 % (36-47) 10/26/23 03:30 MCV 97.3 fl (85-98) 10/26/23 03:30 MCH 30.5 pg (27-33) 10/26/23 03:30 MCHC 31.4 g/dL (30-55) 10/26/23 03:30 RDW 13.1 % (12.1-15.1) 10/26/23 03:30 Plt Count 253 10^3/cmm (157-399) 10/26/23 03:30 MPV 10.4 fL (7.4-10.4) 10/26/23 03:30 Neut % (Auto) 46.7 % 10/26/23 03:30 Lymph % (Auto) 39.9 % 10/26/23 03:30 Routt % (Auto) 8.8 % 10/26/23 03:30 Eos % (Auto) 3.6 % 10/26/23 03:30 Baso % (Auto) 0.7 % 10/26/23 03:30 Neut # (Auto) 2.85 10^3/uL (1.8-7.7) 10/26/23 03:30 Lymph # (Auto) 2.4 10^3/uL (0.8-4.8) 10/26/23 03:30 Routt # (Auto) 0.5 10^3/uL (0.2-0.9) 10/26/23 03:30 Eos # (Auto) 0.2 10^3/uL (0.0-0.8) 10/26/23 03:30 Baso # (Auto) 0.0 10^3/uL (0.0-0.1) 10/26/23 03:30 Nucleated RBC % (auto) 0 % 10/26/23 03:30 Nucleated RBCs # 0.0 /100WBC 10/26/23 03:30 Sodium 141 mmol/L (136-145) 10/26/23 03:30 Potassium 3.8 mmol/L (3.5-5.1) 10/26/23 03:30 Chloride 109 mmol/L (98-107) H 10/26/23 03:30 Carbon Dioxide 21 mmol/L (22-29) L 10/26/23 03:30 Anion Gap 14.8 (5-19) 10/26/23 03:30 BUN 8 mg/dL (6-20) 10/26/23 03:30 Creatinine 0.4 mg/dL (0.5-0.9) L 10/26/23 03:30 GFR Calculation 179.6 mL/min (90-130) H 10/26/23 03:30 Glucose 95 mg/dL (65-115) 10/26/23 03:30 Calculated Osmolality 290 mOsm/kg (285-295) 10/26/23 03:30 Lactic Acid 1.0 mmol/L (0.5-2.2) 10/24/23 14:45 Calcium 8.0 mg/dL (8.5-10.5) L 10/26/23 03:30 Phosphorus 3.8 mg/dL (2.5-4.5) 10/25/23 03:41 Magnesium 2.1 mg/dL (1.7-2.3) 10/25/23 03:41 Total Bilirubin 0.3 mg/dL (0.15-1.2) 10/26/23 03:30 AST 12 U/L (0-32) 10/26/23 03:30 ALT 22 U/L (0-33) 10/26/23 03:30 Alkaline Phosphatase 66 U/L (35-105) 10/26/23 03:30 Troponin T Baseline < 6 ng/L (0-10) 10/24/23 14:45 Troponin T 120 Minute 6.00 ng/L (0-10) 10/24/23 16:13 Delta Troponin T 0.12944 ABS# (0-10) 10/24/23 16:13 Troponin T Hi Sens 6Hr 6.00 ng/L (0-10) 10/24/23 20:47 Troponin T Hi Sens 6Hr Delta 0.85909 ng/L (0-12) 10/24/23 20:47 NT-Pro-B Natriuret Pep < 36 pg/mL (0-125) 10/24/23 14:45 Total Protein 6.1 g/dL (6.6-8.7) L 10/26/23 03:30 Albumin 3.7 g/dL (3.5-5.2) 10/26/23 03:30 Globulin 2.4 g/dL (1.3-4.6) 10/26/23 03:30 Homocysteine 6.59 umol/l (0-15) 10/24/23 16:13 TSH 0.83 uIU/mL (0.27-4.20) 10/24/23 14:45 Vitals Last Vital Signs Temp 98.0 F 10/26/23 07:32 Pulse 72 10/26/23 07:32 Resp 20 H 10/26/23 07:32 BP 118/80 10/26/23 07:32 Pulse Ox 97 10/26/23 07:32 O2 Del Method Room Air 10/26/23 07:32 Discharge Plan Discharge Patient Disposition: Home Condition: Stable Prescriptions: Continued Lacto no.25-Wjyduk-DSU-larch 25B cell-25B cell-50 mg Capsule 2 cap PO DAILY aspirin 81 mg Tablet,Delayed Release (Dr/Ec) 81 mg PO DAILY 30 Days Qty: 30 0RF atorvastatin 40 mg Tablet 40 mg PO BEDTIME 30 Days Qty: 30 0RF clopidogrel 75 mg Tablet 75 mg PO DAILY 30 Days Qty: 30 0RF nitroglycerin 0.4 mg Tablet, Sublingual 0.4 mg sublingual Q5M PRN (Reason: Chest Pain) 30 Days Qty: 30 0RF Changed metoprolol succinate 25 mg Tablet Extended Release 24 Hr 12.5 mg PO BID 30 Days Qty: 30 0RF Discharge Orders: Discharge Order (Routine); Ordered 10/26/23 Ordered By: Ronald Ruiz Referrals: Jesu Mcgill MD [Physician] - 1 week Chuck Harris MD [Referring] - 1 week Discharge Diet: Cardiac Discharge Activity: Resume usual activity Patient Instructions: Opioid Safety Activity Restrictions/Additional Instructions: - If you have stroke like symptoms please go to the emergency room -If you have chest pain please go emergency room -Please use medication as prescribed Discharge Attestations Time Spent in Discharge Care*: greater than 30 min Quality Metrics Clinical Quality Measures [ Cerebrovascular Accident { Contraindication to Antithrombotic: None; antithrombotic prescribed; Contraindication to Anticoagulation: Overlap treatment not indicated; Contraindication to Statin: None; Statin prescribed;}] Coding Level of Care Code 99462 Total time (in minutes) for Discharge: 45 Diagnoses Chest pain R07.9 Acute CVA (cerebrovascular accident) I63.9
[2023-10-26 11:34] VITALS: BP 118/80; PULSE 72; RESP 20; TEMP 36.7
[2023-10-26 12:00] VITALS: BP 118/80; PULSE 72; RESP 20; TEMP 36.7
--- NOTE | 2023-10-26 12:07 | PC.NURSE ---
Discharge Note Patient discharged to [home] via [ambulation] accompanied by [a family member]. Discharge instructions reviewed with patient and/or personal service representative. Mobile pharmacy medications and/or prescriptions provided. Belongings/home medications returned.
[2023-10-28 02:55] LABS: CARDIOLIPIN AB (IGA) <2.0 APL-U/mL; CARDIOLIPIN AB (IGG) <2.0 GPL-U/mL; CARDIOLIPIN AB (IGM) <2.0 MPL-U/mL
[2023-10-30 15:24] LABS: PROTHROMBIN (FACTOR II) 20210G NEGATIVE
[2023-10-30 16:19] LABS: Factor 5 Leiden Mutation NEGATIVE
[2023-10-31 11:24] LABS: Beta 2 Glycoprotein IGA <2.0 U/mL; Beta 2 Glycoprotein IGG <2.0 U/mL; Beta 2 Glycoprotein IGM <2.0 U/mL; CARDIOLIPIN AB (IGA) <2.0 APL-U/mL; CARDIOLIPIN AB (IGG) <2.0 GPL-U/mL; CARDIOLIPIN AB (IGM) <2.0 MPL-U/mL
== END 2023-10-26 12:10 | disposition home or self-care (01) | DRG 69 ==
LOC: ER 15:32 → CSU 17:03
PROVIDERS: Admitting Provider Family Medicine; Emergency Provider Family Medicine; PCP Family Medicine; Visit Provider Family Medicine
DX: G45.9 Transient cerebral ischemic attack, unspecified (principal); I25.42 Coronary artery dissection; K21.9 Gastro-esophageal reflux disease without esophagitis; Z79.82 Long term (current) use of aspirin; Z79.02 Long term (current) use of antithrombotics/antiplatelets; J45.909 Unspecified asthma, uncomplicated; G43.909 Migraine, unspecified, not intractable, without status migrainosus; Z82.3 Family history of stroke; Z98.84 Bariatric surgery status; I10 Essential (primary) hypertension; R07.9 Chest pain, unspecified
CPT/HCPCS: 36415; 70450; 70496; 70498; 70553; 71045; 80053; 81241; 83090; 83516; 83605; 83735; 83880; 84100; 84443; 84484; 85025; 85210; 86146; 86147; 93005; 94664; 96372; 96374; 97161; 97165; 99285; A9577; J1650; J2270; J2470; J7030; Q9967

== ENCOUNTER → 2023-11-02 13:26 | Outpatient (BNVA) | payer OTHER, MEDICAID, SELFPAY | PROVIDERS: PCP Family Medicine; Visit Provider Nurse Practitioner Family | DX: I25.42 Coronary artery dissection (principal); R07.9 Chest pain, unspecified | CPT/HCPCS: 36415; 80048 ==

== ENCOUNTER 2023-12-20 13:15 | Outpatient (CLI) | payer OTHER, MEDICAID, SELFPAY ==
--- NOTE | 2023-12-20 13:15 | USCV_ITS ---
Padmaja Haywood Age: 38 Gender: F : 1985 Exam Date: 12/20/2023 13:40 Ordering Phys: Jl Henderson M.D ([email or web address]) Technologist: DK Exam Location: [facility] [place] Indication: HTN Aortic Velocity @ SMA (cm/s) 92 RIGHT KIDNEY LEFT KIDNEY Velocity (cm/s) Velocity (cm/s) Sys/Farris Sys/Fraris Resistive Index Resistive Index 108.7 / 58.3 0.46 Proximal Renal Artery 93.7 / 30.4 0.68 101.2 / 43.7 0.57 Mid Renal Artery 156.9 / 66.7 0.57 98.1 / 38.3 0.61 Distal Renal Artery 63.9 / 24.4 0.62 56.3 / 25.5 0.55 Hilar 117.8 / 41.3 0.65 24.6 / 10.4 0.58 Upper Pole 25.3 / 11.8 0.53 33.8 / 14.0 0.58 Mid Pole 28.5 / 14.1 0.50 44.3 / 15.3 0.65 Lower Pole 38.5 / 18.7 0.51 1.18 Renal Aortic Ratio 1.70 Accleration Time (sec) 319.20 Hilar 735.00 168.80 Upper Pole 163.20 312.70 Mid Pole 116.60 298.40 Lower Pole 219.50 11.2 Kidney Length (cm) 11.0 CONCLUSIONS Normal kidney dimensions bilaterally. No hydronephrosis No sonographic evidence of hemodynamically significant renal artery stenosis bilaterally. Vince Charles MD (Electronically Signed) Final Date: 20 December 2023 15:59 S
== END 2023-12-20 13:20 | disposition home or self-care (01) ==
PROVIDERS: PCP Family Medicine; Visit Provider Internal Medicine
DX: I25.42 Coronary artery dissection (principal); I10 Essential (primary) hypertension
CPT/HCPCS: 93975